=== PATIENT | female | born 1975 | race Caucasian/White ===

== ENCOUNTER 2022-05-06 07:21 | Outpatient (CLI) | payer OTHER, SELFPAY ==
--- NOTE | ~2022-05-06 | MR_ITS ---
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 TECHNIQUE: Magnetic resonance imaging (MRI) of the brain and brainstem was performed without and with 12 mL MultiHance intravenous contrast. COMPARISON: None. FINDINGS: Left hippocampus is small with increased T2-weighted signal intensity. There is no intracra nial hemorrhage, acute infarction, or abnormal intracranial mass lesion. There is an old infarct in l eft parietal lobe. The ventricles are normal in size. There is mild mucosal thickening in the paranas al sinuses. The orbits are normal. The mastoid air cells are normal. IMPRESSION: 1. 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 2. Left-sided mesial temporal sclerosis. Reviewed, dictated and finalized at location A. ING ANALYST
== END 2022-05-06 07:22 | disposition home or self-care (01) ==
LOC: ANHIMG 07:26
PROVIDERS: Visit Provider Internal Medicine
DX: G40.209 Localization-related (focal) (partial) symptomatic epilepsy and epileptic syndromes with complex partial seizures, not intractable, without status epilepticus (principal)
CPT/HCPCS: 70553; A9577

== ENCOUNTER 2022-05-24 07:05 | Outpatient (CLI) | payer OTHER, SELFPAY ==
[2022-05-24 08:24] LABS: Hemoglobin A1C 5.1 % (<5.7)
[2022-05-24 08:32] LABS: Cholesterol 221 mg/dL (0-200); Triglycerides 49 mg/dL (<150)
[2022-05-24 08:38] LABS: LDL Cholesterol Direct 72 mg/dL
[2022-05-24 09:17] LABS: Vitamin D 25 Hydroxy 45.3 ng/mL
[2022-05-24 10:11] LABS: HDL Direct 118 mg/dL
[2022-05-27 18:33] LABS: APC Ratio 5.3 ratio (>=2.1)
[2022-05-27 20:48] LABS: Antithrombin III Activity 131 % normal (80-135)
[2022-05-28 11:02] LABS: Factor VIII Activity 64 % normal (50-180)
[2022-05-28 12:42] LABS: Protein S Antigen, Free 92 % normal (50-147); Protein S Antigen, Total 90 % normal (70-140)
[2022-05-29 05:22] LABS: Carbamazepine Tegretol 9.7 mcg/mL (4.0-12.0)
[2022-05-29 19:16] LABS: Lupus dRVVT Screen 36 sec (<=45); PTT-LA Screen 34 sec (<=40)
== END 2022-05-24 07:06 | disposition home or self-care (01) ==
PROVIDERS: Visit Provider Internal Medicine
DX: I63.9 Cerebral infarction, unspecified (principal); G40.209 Localization-related (focal) (partial) symptomatic epilepsy and epileptic syndromes with complex partial seizures, not intractable, without status epilepticus
CPT/HCPCS: 36415; 80061; 80156; 82306; 83036; 85240; 85300; 85303; 85305; 85306; 85307; 85613; 85730; 86146; 86147

== ENCOUNTER 2022-05-25 08:29 | Outpatient (CLI) | payer OTHER, SELFPAY ==
--- NOTE | 2022-05-25 | ECHO_ITS ---
Patient Info Name: Eleanor Wilson Age: 46 years : 1975 Gender: Female Ht: 66 in Wt: 144 lbs BSA: 1.75 m2 HR: 76 bpm BP: 148 / 73 mmHg Technical Quality: Good Exam Date: 05/25/2022 1:49 PM Exam Location: [facility] Patient Status: Outpatient Admit Date: 05/25/2022 Staff Ordering Physician: Delaney, José Miguel Boss MD Weapons Officer [employer]: Amanda Pierson RDCS Attending Provider: Delaney, José Miguel Boss MD Referring Physician: Delaney ALAB; Exam Type: CA echo doppler color flow Study Info Indications I63.9 - CVA Complete two-dimensional, color flow and Doppler transthoracic echocardiogram is performed. Summary 1. Complete two-dimensional, color flow and Doppler transthoracic echocardiogram is performed. 2. Left ventricular chamber dimension is normal. 3. Left ventricular systolic function is normal, estimated at 60-65%. 4. The left ventricular diastolic function is normal. 5. E/e' 8 is minimally elevated. 6. Global longitudinal strain is normal at -18.2%. 7. Left atrial chamber dimension is mildly enlarged. 8. No pulmonary hypertension, estimated pulmonary arterial systolic pressure is 30 mmHg. Left Ventricle E/e' 8 is minimally elevated. Global longitudinal strain is normal at -18.2%. Left ventricular chamber dimension is normal. Left ventricular systolic function is normal, estimated at 60-65%. The left ventricular diastolic function is normal. Right Ventricle Right ventricular chamber dimension is normal. Right ventricular systolic function is normal. Left Atria Left atrial chamber dimension is mildly enlarged. Right Atria Right atrial chamber dimension is normal. Aortic Valve The aortic valve is trileaflet. There is no aortic valve stenosis. There is no aortic valve regurgitation. Pulmonic Valve There is mild pulmonic regurgitation. Mitral Valve There is no mitral valve stenosis. There is no mitral valve regurgitation. Tricuspid Valve There is no tricuspid valve regurgitation. No pulmonary hypertension, estimated pulmonary arterial systolic pressure is 30 mmHg. Pericardium/Pleural There is no pericardial effusion. Inferior Vena Cava Normal inferior vena cava with >50% collapse upon inspiration consistent with normal right atrial pressure, 5 mmHg. Aorta The aortic root size at the sinus of Valsalva is normal. Left Ventricular Outflow Tract Name Value Normal LVOT 2D LVOT Diameter 1.9 cm LVOT Doppler LVOT Peak Gradient 3 mmHg LVOT Mean Gradient 2 mmHg LVOT VTI 20 cm LVOT VTI/AV VTI Ratio 0.9 LVOT Stroke Volume 56 ml LVOT CO 4.1 l/min LVOT CI 2.4 l/min/m2 Pulmonic Valve Name Value Normal RVOT Doppler
--- NOTE | ~2022-05-25 | US_ITS ---
EXAMINATION: US carotid duplex BI DATE: 05/25/2022 17:17 INDICATION: Cerebrovascular accident TECHNIQUE: Grayscale, color Doppler, and pulsed Doppler images of the cervical carotid arteries were obtained. The degree of vessel stenosis is placed in one of the following categories: normal, <50%, 5 0-69%, >=70% but less than near-occlusion, near-occlusion, or total occlusion. Note that percent sten osis relative to normal distal artery lumen diameter is indirectly measured from velocity measurement s as described by Torsten, et al. Radiology 2003; 229:340-346. COMPARISON: None. FINDINGS: RIGHT: The right common carotid artery (CCA) peak systolic velocity (PSV) is 96 cm/s. The right internal car otid artery (ICA) PSV is 99 cm/s. The right ICA end-diastolic velocity (EDV) is 23 cm/s. The right IC A/CCA PSV ratio is 1.0. Grayscale and color Doppler images yield an estimate of <50% diameter reducti on from plaque in the ICA. The external carotid artery (ECA) PSV is 130 cm/s. There is antegrade flow in the right vertebral artery. LEFT: The left CCA PSV is 111 cm/s. The left ICA PSV is 126 cm/s. The left ICA EDV is 50 cm/s. The left ICA /CCA PSV ratio is 1.1. Grayscale and color Doppler images including secondary Doppler criteria yield an estimate of <50% diameter reduction from plaque in the ICA. The ECA PSV is 108 cm/s. There is ante grade flow in the left vertebral artery. IMPRESSION: 1. <50% stenosis in the right internal carotid artery. 2. <50% stenosis in the left internal carotid artery. Reviewed, dictated and finalized at location A. TRICAL WORKER
== END 2022-05-25 08:30 | disposition home or self-care (01) ==
LOC: ANHCARD 08:32
PROVIDERS: Visit Provider Internal Medicine
DX: I63.9 Cerebral infarction, unspecified (principal); I65.23 Occlusion and stenosis of bilateral carotid arteries
CPT/HCPCS: 93306; 93880

== ENCOUNTER 2022-06-06 15:03 | Outpatient (CLI) | payer OTHER, SELFPAY ==
--- NOTE | 2022-06-09 12:23 | WPDHOLTEREM ---
Holter/Event Monitor Holter/Event Monitor Date of procedure: 06/06/22 Holter/Event Procedure: 48 Hr Holter Monitor Indications: CVA Conclusion: 1. 48 hour holter monitor on 06/06/22. 2. Underlying rhythm is sinus rhythm. HR range 63-136 bpm; average HR 89 bpm. 3. No premature supraventricular complexes. No supraventricular tachycardia. 4. There is 1 premature ventricular complex. No ventricular tachycardia. 5. No sinoatrial or atrioventricular blocks. No significant pauses greater than 2 seconds. 6. Patient reports symptoms of irregular beat and pounding heart beats which demonstrate sinus rhythm, HR range 82-113 bpm.
== END 2022-06-06 15:04 | disposition home or self-care (01) ==
PROVIDERS: Visit Provider Internal Medicine
DX: I63.9 Cerebral infarction, unspecified (principal)
CPT/HCPCS: 93225; 93226

== ENCOUNTER 2022-12-19 16:42 | Outpatient (CLI) | payer OTHER, SELFPAY ==
--- NOTE | ~2022-12-19 | XR_ITS ---
EXAMINATION: [id number] DATE: 12/19/2022 17:02 INDICATION: Right foot pain. TECHNIQUE: 3 views of right foot including standing views were obtained. COMPARISON: None. FINDINGS: Bone alignment is normal. No fracture. Joint spaces are normal. IMPRESSION: 1. Normal right foot. Reviewed, dictated and finalized at location A. IMPRESSION: 1. Normal right foot.
== END 2022-12-19 16:43 | disposition home or self-care (01) ==
PROVIDERS: PCP Internal Medicine; Visit Provider Clinical Nurse Specialist
DX: M79.671 Pain in right foot (principal)
CPT/HCPCS: 73630

== ENCOUNTER 2023-02-21 06:34 | Outpatient (CLI) | payer OTHER, SELFPAY ==
[2023-02-21 07:22] LABS: Basophils Absolute Auto 0.1 K/mm3 (0.0-0.1); Basophils Percent Auto 1.4 % (0.2-1.2); Eosinophils Absolute Auto 0.1 K/mm3 (0-0.3); Eosinophils Percent Auto 1.9 % (0-4.4); Hematocrit 37.4 % (37.0-47.0); Hemoglobin 12.4 g/dL (12.0-15.0); Immature Granulocyte Absolute 0.01 K/mm3 (0.00-0.031); Immature Granulocyte Percent A 0.2 % (0-0.5); Lymphocytes Absolute Auto 1.48 K/mm3 (0.9-3.2); Lymphocytes Percent Auto 34.3 % (18.3-44.2); Mean Corpuscular HGB Conc 33.2 g/dl (32-36); Mean Corpuscular Hemoglobin 31.3 pg (26-34); Mean Corpuscular Volume 94.4 fl (80-100); Mean Platelet Volume 9.7 fl (7.4-10.4); Monocytes Absolute Auto 0.3 K/mm3 (0.1-0.6); Monocytes Percent Auto 7.9 % (2.6-8.5); Neutrophils Absolute Auto 2.4 K/mm3 (1.3-6.7); Neutrophils Percent Auto 54.3 % (45.5-73.1); Platelet Count Result 303 k/mm3 (150-375); Red Blood Count 3.96 M/mm3 (4.2-5.4); Red Cell Distribution Width 11.8 % (11.5-14.5); White Blood Count 4.3 K/mm3 (4.5-10.0)
[2023-02-21 07:32] LABS: Alanine Aminotransferase 17 U/L (6-35); Albumin Level 4.4 g/dL (3.5-5.1); Alkaline Phosphatase 26 U/L (38-126); Anion Gap 7 mmol/L (8-16); Aspartate Amino Transferase 20 U/L (14-36); Bilirubin,Total 0.5 mg/dL (0.2-1.3); Blood Urea Nitrogen 14 mg/dL (7-17); Calcium 8.7 mg/dL (8.4-10.2); Carbon Dioxide 24 mmol/L (22-30); Chloride 99 mmol/L (98-107); Estimated Glomerular Filt Rate > 60; Glucose 92 mg/dL (65-110); Potassium 3.8 mmol/L (3.4-5.0); Sodium 130 mmol/L (137-145)
[2023-02-21 07:33] LABS: Hemoglobin A1C 5.2 % (<5.7)
[2023-02-24 08:22] LABS: Carbamazepine Tegretol 11.2 mcg/mL (4.0-12.0)
== END 2023-02-21 06:35 | disposition home or self-care (01) ==
PROVIDERS: PCP Internal Medicine; Visit Provider Clinical Nurse Specialist
DX: G40.209 Localization-related (focal) (partial) symptomatic epilepsy and epileptic syndromes with complex partial seizures, not intractable, without status epilepticus (principal); I10 Essential (primary) hypertension; Z13.228 Encounter for screening for other metabolic disorders
CPT/HCPCS: 36415; 80053; 80156; 80157; 83036; 84443; 85025; 99212; G0463

== ENCOUNTER 2023-02-23 06:31 | Outpatient (CLI) | payer OTHER, SELFPAY ==
[2023-02-23 07:03] LABS: Anion Gap 8 mmol/L (8-16); Blood Urea Nitrogen 13 mg/dL (7-17); Calcium 8.7 mg/dL (8.4-10.2); Carbon Dioxide 25 mmol/L (22-30); Chloride 100 mmol/L (98-107); Estimated Glomerular Filt Rate > 60; Glucose 93 mg/dL (65-110); Potassium 4.4 mmol/L (3.4-5.0); Sodium 133 mmol/L (137-145)
== END 2023-02-23 06:32 | disposition home or self-care (01) ==
LOC: ANHLAB 06:33
PROVIDERS: PCP Internal Medicine; Visit Provider Clinical Nurse Specialist
DX: E87.1 Hypo-osmolality and hyponatremia (principal)
CPT/HCPCS: 36415; 80048; 99212; G0463

== ENCOUNTER 2023-12-24 15:19 | Outpatient (CLI) | payer OTHER, SELFPAY ==
--- NOTE | 2023-12-24 | ECHO_ITS ---
Patient Info Name: Eleanor Wilson Age: 48 years : 1975 Gender: Female Ht: 67 in Wt: 150 lbs BSA: 1.80 m2 HR: 65 bpm BP: 146 / 72 mmHg Technical Quality: Fair Exam Date: 12/24/2023 3:40 PM Exam Location: Echo Lab Patient Status: Outpatient Admit Date: 12/24/2023 Staff Ordering Physician: Pat, Dax Gilmore MD Courtesy Driver: Virginia Grey RDCS Attending Provider: Pat, Dax Gilmore MD Referring Physician: Pat CANALES; Exam Type: CA echo doppler color flow Study Info Indications R06.00 - Dyspnea, unspecified Complete two-dimensional, color flow and Doppler transthoracic echocardiogram is performed. Summary 1. Complete two-dimensional, color flow and Doppler transthoracic echocardiogram is performed. 2. Left ventricular chamber dimension is normal. 3. Left ventricular systolic function is normal, estimated at 60-65%. 4. The left ventricular diastolic function is normal. 5. E/e' 8 is minimally elevated. 6. There is trace aortic valve regurgitation. 7. There is trace mitral valve regurgitation. 8. There is trace tricuspid valve regurgitation. 9. RVSP is not calculated due to an inadequate TR jet. Left Ventricle E/e' 8 is minimally elevated. Left ventricular chamber dimension is normal. Left ventricular systolic function is normal, estimated at 60-65%. The left ventricular diastolic function is normal. Right Ventricle Right ventricular systolic function is normal and with normal TAPSE 2.9 cm. Right ventricular chamber dimension is normal. Left Atria Left atrial chamber dimension is normal. Right Atria Right atrial chamber dimension is normal. Aortic Valve The aortic valve is trileaflet. There is no aortic valve stenosis. There is trace aortic valve regurgitation. Pulmonic Valve There is no pulmonic regurgitation. Mitral Valve There is no mitral valve stenosis. There is trace mitral valve regurgitation. Tricuspid Valve There is trace tricuspid valve regurgitation. RVSP is not calculated due to an inadequate TR jet. Pericardium/Pleural There is no pericardial effusion. Inferior Vena Cava Normal inferior vena cava with >50% collapse upon inspiration consistent with normal right atrial pressure, 5 mmHg. Aorta The aortic root size at the sinus of Valsalva is normal. Left Ventricular Outflow Tract Name Value Normal LVOT 2D LVOT Diameter 2.0 cm LVOT Doppler LVOT Peak Gradient 3 mmHg LVOT Mean Gradient 1 mmHg LVOT VTI 20 cm LVOT VTI/AV VTI Ratio 0.8 LVOT Stroke Volume 66 ml LVOT CO 4.1 l/min LVOT CI 2.3 l/min/m2 Pulmonic Valve Name Value Normal PV Doppler PV Peak Gradient 3 mmHg PV Regurgitation Doppler
== END 2023-12-24 15:20 | disposition home or self-care (01) ==
PROVIDERS: PCP Internal Medicine
DX: R06.09 Other forms of dyspnea (principal)
CPT/HCPCS: 93306

== ENCOUNTER 2024-01-25 09:33 | Outpatient (CLI) | payer OTHER, SELFPAY ==
--- NOTE | 2024-01-25 | EST_ITS ---
Patient Info Name: Eleanor Wilson Age: 48 years : 1975 Gender: Female Ht: 67 in Wt: 150 lbs BSA: 1.80 m2 HR: 72 bpm BP: 150 / 102 mmHg Heart Rhythm: Sinus Rhythm Exam Date: 01/25/2024 10:29 AM Exam Location: Echo Lab Patient Status: Outpatient Admit Date: 01/25/2024 Staff Ordering Physician: TAYE, DANIELLE Attending Provider: TAYE, DANIELLE Exercise Technologist: Lucia Nuñez CT Exercise Physician: Indra Pastrana DO Exam Type: CA stress test treadmill w NM Study Info Indications R06.02 - Shortness of breath A nuclear stress test was performed. Summary 1. 1. Negative Miguel exercise stress test for ischemic ST changes by ECG criteria. 2. 2. Reduced functional capacity, achieving 7 METs of workload. 3. 3. Baseline hypertension. 4. 4. Appropriate HR response to exercise. 5. 5. Appropriate HR recovery at 1 minute post exercise. 6. 6. Nuclear scan to follow and will be reported separately. Please correlate with it. 7. 7. Patient informed of the above results. Protocol: Miguel Stress ECG Details Stage: REST Duration (min): 2 min : 10 sec Speed (mph): 0.0 Grade (%): 0 HR (bpm): 73 SBP (mmHg): 150 DBP (mmHg): 104 METS: --- Stage: REST Duration (min): 7 min : 14 sec Speed (mph): 0.0 Grade (%): 0 HR (bpm): 82 SBP (mmHg): 150 DBP (mmHg): 104 METS: --- Stage: STAGE 1 Duration (min): 1 min : 0 sec Speed (mph): 1.7 Grade (%): 10 HR (bpm): 99 SBP (mmHg): 150 DBP (mmHg): 104 METS: --- Stage: STAGE 1 Duration (min): 2 min : 0 sec Speed (mph): 1.7 Grade (%): 10 HR (bpm): 120 SBP (mmHg): 150 DBP (mmHg): 104 METS: --- Stage: STAGE 1 Duration (min): 3 min : 0 sec Speed (mph): 1.7 Grade (%): 10 HR (bpm): 131 SBP (mmHg): 190 DBP (mmHg): 82 METS: --- Stage: STAGE 2 Duration (min): 1 min : 0 sec Speed (mph): 2.5 Grade (%): 12 HR (bpm): 142 SBP (mmHg): 190 DBP (mmHg): 82 METS: --- Stage: STAGE 2 Duration (min): 2 min : 0 sec Speed (mph): 2.5 Grade (%): 12 HR (bpm): 150 SBP (mmHg): 193 DBP (mmHg): 75 METS: --- Stage: STAGE 2 Duration (min): 3 min : 0 sec Speed (mph): 2.5 Grade (%): 12 HR (bpm): 156 SBP (mmHg): 193 DBP (mmHg): 75 METS: --- Stage: STAGE 3 Duration (min): 0 min : 2 sec Speed (mph): 3.4 Grade (%): 14 HR (bpm): 156 SBP (mmHg): 193 DBP (mmHg): 75 METS: --- Stage: RECOVERY Duration (min): 0 min : 57 sec Speed (mph): 0.0 Grade (%): 0 HR (bpm): 132 SBP (mmHg): 187 DBP (mmHg): 48 METS: --- Stage: RECOVERY Duration (min): 1 min : 57 sec Speed (mph): 0.0 Grade (%): 0 HR (bpm): 107 SBP (mmHg): 187 DBP (mmHg): 48 METS: --- Stage: RECOVERY Duration (min): 2 min : 57 sec Speed (mph): 0.0 Grade (%): 0 HR (bpm): 106 SBP (mmHg): 181 DBP (mmHg): 61 METS: --- Stage: RECOVERY Duration (min): 3 min : 13 sec Speed (mph): 0.0 Grade (%): 0 HR (bpm): 99 SBP (mmHg): 181 DBP (mmHg): 61 METS: --- Rest HR: 82 bpm Peak HR: 157 bpm Rest Sys BP: 150 mmHg Peak Sys BP: 193 mmHg Max Pred HR: 172 bpm % Max Pred HR: 91 % Target HR: 146 bpm Max RPP: 30,301 bpm*mmHg Banda Score: -3 Termination Reason: Reached target heart rate or workload Cardiac Symptoms: Shortness of breath Max ST Seg Deviation: 2 mm Total Time: 6 min : 2 sec Rest Guo BP: 104 mmHg Peak Guo BP: 75 mmHg Angina Score: None Total METS: 7.1 Resting ECG Sinus rhythm. Stress ECG No ST changes. Arrhythmias None. Report Signatures
--- NOTE | ~2024-01-25 | NM_ITS ---
EXAMINATION: NM stress w perf spect multi DATE: 01/25/2024 11:35 INDICATION: Shortness of breath. TECHNIQUE: Rest images were obtained following intravenous administration of 9.8 mCi Tc99m tetrofosmi n ([employer]). The patient performed an exercise activity. At peak exercise, 31.2 mCi Tc99m tetrofosmin ([employer]) was administered intravenously, and stress images were obtained. Data was reconstructed in to short axis and horizontal and vertical long axis SPECT images. Gated SPECT images were also obtain ed. COMPARISON: None. FINDINGS: There is no definite reversible or fixed perfusion abnormality to suggest ischemia or infar ction. There is no segmental wall motion abnormality. Left ventricular ejection fraction measures > 70%. IMPRESSION: 1. No definite ischemia or infarct. 2. Normal left ventricular ejection fraction measuring >70%. Reviewed, dictated and finalized at location A.
== END 2024-01-25 09:34 | disposition home or self-care (01) ==
PROVIDERS: PCP Internal Medicine
DX: R06.02 Shortness of breath (principal)
CPT/HCPCS: 78452; 93017; A9502

== ENCOUNTER 2024-08-13 15:35 | Outpatient (CLI) | payer OTHER, SELFPAY ==
--- NOTE | ~2024-08-13 | MM_ITS ---
EXAMINATION: MM screening marjorie BI w alfie HISTORY: Screening TECHNIQUE: Craniocaudal and mediolateral oblique 3-D tomosynthesis images were obtained and synthetic 2-D images were generated. CAD analysis was submitted and interpreted. COMPARISON: No prior mammogram is available for comparison at this institution. BREAST PARENCHYMAL COMPOSITION: Dense: The breasts are extremely dense, which lowers the sensitivity of mammography. FINDINGS: There is a circumscribed mass in the upper outer quadrant of the right breast, posterior th ird, partially obscured by fibroglandular tissue. There are scattered benign-appearing breast calcifi cations. There are no suspicious masses or architectural distortion in the left breast. IMPRESSION: 1. Right breast mass upper outer quadrant, posterior third. 2. Additional mammographic views and possible breast ultrasound are recommended. BI-RADS Category 0: Incomplete: Needs additional imaging evaluation. Reviewed, dictated and finalized at location A. IMPRESSION: 1. Right breast mass upper outer quadrant, posterior third. 2. Additional mammographic views and possible breast ultrasound are recommended . BI-RADS Category 0: Incomplete: Needs additional imaging evaluation.
--- OUTSIDE RECORDS SUMMARY | 2024-08-13 16:23 | XMS_ITS | Encounter Summary ---
Author Organization [facility] Address [address] [place] [address] Care Team Providers Care Metallurgical Lab Technician Name Role Phone Blanquita Eubanks WATERFRONT DIRECTOR Primary Care Provider [phone] Encounter Details Date Type Department Care Team (Late Contact Info) Description 03/26/2024 MyChart Message Enc [facility] - [address], [address] [place] [phone] Kenyatta Sow MD [address] [place] [id number] Carbamazaphine Social History Tobacco Use Types Packs/Day Years Used Date Smoking Tobacco: Never Passive Smoke Exposure: Never Smokeless Tobacco: Never Alcohol Use Standard Drinks/Week Comments Yes 1 (1 standard drink = 0.6 oz pure alcohol) a little rum with soda or water/ 3 weekly Comments Unknown Sex and Gender Information Value Date Recorded Sex Assigned at Not on file Legal Sex Female 12:54 PM CDT Gender Identity Not on file Sexual Orientation Not on file documented as of this encounter Plan of Treatment Upcoming Encounters Date Type Department Care Team (Late Contact Info) Description 03/30/2025 7:20 AM STEP DOWN SPECIALIST Office Visit [facility] - [address], [address] [place] [phone] Kenyatta Sow MD [address] [place] [address] documented as of this encounter Visit Diagnoses Not on filedocumented in this encounter Care Teams Metallurgical Lab Technician Relationship Specialty Start Date End Date Blanquita Eubanks FNP [address] [facility] [address] [place] [address] PCP - General CLINICAL NURSE SPECIALIST 09/24/23 documented as of this encounter
--- OUTSIDE RECORDS SUMMARY | 2024-08-13 16:23 | XMS_ITS | Encounter Summary ---
Author Organization [facility] Address [address] [place] [address] Care Team Providers Care Vp Sales Name Role Phone None, Provider Primary Care Provider Blanquita Quezada Primary Care Provider [phone] Encounter Details Date Type Department Care Team (Late st Contact Info) Description 02/22/2023 Tiscali UKt Message Enc [address], [address] [place] [phone] Noni Elder, CHIP [address] [place] [phone] Lab testing Social History Tobacco Use Types Packs/Day Years Used Date Smoking Tobacco: Never Passive Smoke Exposure: Never Smokeless Tobacco: Never Alcohol Use Standard Drinks/Week Comments Yes 3.3 (1 standard drink = 0.6 oz p ure alcohol) Comments Unknown Sex and Gender Information Value Date Recorded Sex Assigned at Not on file Legal Sex Female 12:54 PM CDT Gender Identity Not on file Sexual Orientation Not on file documented as of this encounter Plan of Treatment Upcoming Encounters Date Type Department Care Team (Late st Contact Info) Description 03/30/2025 7:20 AM BRASS WIND INSTRUMENTS TUBE BENDER Office Visit [address], [address] [place] [phone] Kenyatta Sow MD [address] [place] [address] documented as of this encounter Visit Diagnoses Not on filedocumented in this encounter Care Teams Vp Sales Relationship Specialty Start Date End Date None, Provider, PCP - General 11/04/21 09/23/23 Blanquita Eubanks, PBX MECHANIC [address] [place] [address] [address] [place] [address] PCP - General CLINICAL NURSE SPECIALIST 09/24/23 documented as of this encounter
--- OUTSIDE RECORDS SUMMARY | 2024-08-13 16:23 | XMS_ITS | Data Portability ---
Author Organization [facility] Address [address] [place] [address] Care Team Providers Care Station Installation Supervisor Name Role Phone LINDSAYNARESHGIOVANNYMARTY Primary Care Provider Assessment Encounter Date Assessment Date Assessment LastModified by Organization Details LastModified Time 08/23/2023 08/23/2023 Annual gynecological exam performed. Patient will come back in a year unless there are new symptoms. jostin Not available 08/23/2023 10:57:23 Plan of Treatment Reminders Order Date Submit Date Provider Last Modified By Organization Details Last Modified Time Details Appointments WELL WOMAN-EST 2024 03:30P M GALE Calderon Not available Not available Not available Lab None recorded. Referral None recorded. Procedures None recorded. Surgeries None recorded. Imaging MAMMO, screening , digital, bilateral 2023 024 [facility], [address] [place] [address] [address], [place], [address], 03/02/2024 05:00:53 Medication Orders None recorded. Patient TargetsNo targets recorded. Patient InstructionsNo instructions recorded. Reason for Referral None Reported. Results Created Date Observation Date Name Description Value Unit Range Abnormal Flag Note LastModifiedBy Organization Detail LastModifiedTime 08/23/19 24 08/23/2023 IMAGE GUIDE D PAP AND HPV REGAR DLESS image guided Pap, HPV regardless of Pap result SEE RESULT S BELOW CASE REPOR T: Cytol ogy Gynec ologi tom Repor t Case: [id number] Autho chato g Provi tl: Tasneem Calloway NP Colle cted: 08/22 1136 Order ing Locat ion: [place] Patho logroslyn Recei ruperto: 08/23 0302 First Scree n: Jane stanley, Cuong nichole, CT Rescr een: Grecia Solomon ret, CT Speci men: Arti ulloa Pap - Image d, Cervi x STATE MENT OF ADEQU ACY: Satis facto ry for evalu ation Trans forma tion zone compo nent absen t The absen ce of an endoc ervic al compo nent was confi rmed by an addit ional scree ner. ----- ----- ----- ----- ----- ----- ----- ----- ----- ----- ----- ----- ----- ----- ----- ----- ----- ---- FINAL DIAGN OSIS: Negat wanda for Intra epith elial Jeradl butts or Niraj akbar (NIL) . Elect malinibeatriz king ankur d by Grecia Solomon ret, CT on 2023 at 5:53 PM ----- ----- ----- ----- ----- ----- ----- ----- ----- ----- ----- ----- ----- ----- ----- ----- ----- ---- HPV RESUL TS: HPV mRNA E6/E7 : No HPV mRNA Detec martina NOTE: This high risk HPV mRNA assay detec ts fourt een high- risk HPV types (16, 18, 31, 33, 35, 39, 45, 51, 52, 56, 58, 59, 66, 68) witho ut diffe renti ation . COMME NT: This speci men was revie wed by a Cytot echno logis t and/o r Patho logis t (as indic ated in this repor t) after evalu ation using the Thinp rep Imagi ng Syste m. CLINI TOM INFOR MATIO N: Menst rual Statu s: LMP (if appli cable ): Clini tom Histo ry/Pr eviou s Pap: Type of Neopl leonid (if appli cable ): Signi fican t Clini tom Findi ngs: Other Histo ry: Hormo adriana (if appli cable ): PAP EDUCA CONCEPCION L NOTE: The Pap Test is a scree artemio test with an inher ent false negat wanda rate. Liqui d-bas ed sampl ing may decre ase, but will not elimi vidal, false negat wanda resul ts. A negat wanda resul t does not precl ude the prese nce and/o r devel opmen t of disea se, since the prese nce of abnor mal cells in the sampl e depen ds on the locat ion of the lesio n and sampl ing techn ique. Maria Isabel nued regul ar scree artemio is the best metho d of cance r preve ntion . If repor martina cytol ogic findi ng do not corre late with physi tom and/o r histo rical findi ngs, furth er inves tigat ion is recom castro d, as clini jennifer warra nted. Not Available [facility] (Lab) [address], [place], [address], 08/29/2023 18:56:07 Result Notes None recorded. Procedures Surgical History Date Name Laterality Status Provider Name and Address Organization Details Recorded Time Tonsillectomy completed Bridget Herrera [facility] 08/23/2023 10:59:26 loop electrosurgical excision procedure completed GALE Calderon [address], [place], [address], , P.C. 08/23/2023 11:23:05 Imaging Results None recorded. Procedure Notes None recorded. Medical Equipment None Reported. Allergies No known drug allergies Medications Name Sig Start Date Stop Date Status Note LastModified by Organization Details LastModified Time losartan 50 mg tablet TAKE 1 TABLET BY MOUTH DAILY active Not Available Not Available No t Available losartan 25 mg tablet TAKE 1 TABLET BY MOUTH EVERY DAY 08/22 completed Not Available Not Available Not Available lisinopril 5 mg tablet TAKE 1 TABLET BY MOUTH EVERY DAY 08/22 completed Not Available Not Available Not Available Adult Aspirin 81 mg tablet active Not Available Not Available No t Available carbamazepi ne ER 200 mg capsule,ext ended release [id number] TAKE 2 CAPSULES TWICE DAILY active Not Available Not Available No t Available carbamazepi ne 08/22 completed Not Available Not Available Not Available Vitals Date Recorded Body weight Body mass index (BMI) Body height Systolic blood pressure Diastolic blood pressure Systolic blood pressure Diastolic blood pressure Provider Name and Address Organization Details Last Updated DateTime 4 97409.0 4 g 23.8 kg/m2 170.18 cm 150 mm[Hg] 78 mm[Hg] 146 mm[Hg] 82 mm[Hg] Bridget Herrera [facility] 11:25:59 Social History Question Answer Notes LastModified by Organizat ion Details LastModified Time Tobacco Smoking Status Never Smoker Bridgetgee Herrera [facility] 08/23/2023 11:01:37 What Is Your Level Of Alcohol Consumption? Moderate Information not available 08/23/2023 How Many Years Have You Consumed Alcohol? 20 Information not available 08/23/2023 Are You Blind Or Do You Have Difficulty Seeing? No Information not available 08/23/2023 What Is Your Level Of Caffeine Consumption? Moderate Information not available 08/23/2023 In The 14 Days Before Symptom Onset, Have You Had Close Contact With A Laboratory-confir med COVID-19 While That Case Was Ill? No Information not available 08/23/2023 In The 14 Days Before Symptom Onset, Have You Had Close Contact With A Person Who Is Under Investigation For COVID-19 While That Person Was Ill? No Information not available 08/23/2023 Have You Been To An Area Known To Be High Risk For COVID-19? No Information not available 08/23/2023 Are You Deaf Or Do You Have Serious Difficulty Hearing? No Information not available 08/23/2023 What Type Of Diet Are You Following? CARBOHYDRATE Information not available 08/23/2023 What Is The Highest Grade Or Level Of School You Have Completed Or The Highest Degree You Have Received? 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 Yes Information not available 08/23/2023 Do You Use Protection During Sex? No Information not available 08/23/2023 Do You Use Your Seat Belt Or Car Seat Routinely? Yes Information not available 08/23/2023 Do You Have Smoke And Carbon Monoxide Detectors In Your Home? Yes Information not available 08/23/2023 How Much Tobacco Do You Smoke? No Information not available 08/23/2023 Do You Feel Stressed (tense, Restless, Nervous, Or Anxious, Or Unable To Sleep At Night)? [id number] Information not available 08/23/2023 Do You Use Any Illicit Or Recreational Drugs? No Information not available 08/23/2023 Do You Use Sunscreen Routinely? No Information not available 08/23/2023 Have You Used IV Drugs? No Information not available 08/23/2023 Sex: Unknown Functional Status Question Answer Note LastModified by Organization D etails LastModified Time Are you able to walk? YESWOREST Information not available 08/23/2023 What is your exercise level? Moderate Information not available 08/23/2023 Mental Status None recorded. Family History Relationship Description Onset Age of this Age Resolved Age Notes LastModified by Organization Details LastModified Time Paternal Aunt Malignant tumor of breast Not available 2023 10:58:56 Sister Malignant tumor of breast Not available 2023 10:58:56 Medical History Condition Response Arthritis Y Stroke Y Hypertension Y Neurologic/Epilepsy Y High Cholesterol Y Gynecological History Statement/Question Response Date of Last Mammogram Date of LMP 08/12/2023 N Was last menstrual period normal Y STIs/STDs N Date of Last Colonoscopy None Desired Control Method None Abnormal Pap N On BCP's at Conception? N HPV Vaccine N Colposcopy Duration of Flow (days) 5 Current Control Method None Age at First Child 29 Are cycles usually normal Y Frequency of Cycle (Q days) 5 Sexually Active? N Menses Monthly Y Date of DEXA bone scan Age of first menstrual cycle 15 Date of Last Pap Smear Sexual Problems? N LMP Definite N Obstetrics History GPAL:G 1 P 0 0 0 1 Type Value Living 1 Total 1 Past Encounters Encounter ID Performer Location Encounter Start Date Encounter Closed Date Diagnosis/Indication Diagnosis SNOMED-CT Code Diagnosis ICD10 Code Diagnosis Note [id number] GALE Calderon [place] [address] [address] 08/23/2023 10:53:53 08/23/2023 11:31:13 Gynecologic examination 18849615 Z01.419 WWEBC - declinedpa p updatedmam mogram order given - encouraged to schedulege netic testing discussed - handout givencolon CA screening discussed/ encouraged Routine labs UTD/PCPBP precaution s reviewed, f/u with PCPRTC in 1 yr or sooner if needed Suggested Calcium with Vitamin D daily. Patient advised to get an annual flu shot in the fall and she could obtain at [facility] or [facility]. Also to obtain TDap vaccinatio n if you have not had one in the last 10 years. Recommend yearly mammograms . Encouraged monthly self breast exams. Encourage safe sexual practices, to use condoms and limit partners if not already in a monogamous relationsh ip. Engage in regular exercise. Avoid tobacco and illicit drugs. This lifestyle behavior pattern will lead to less health conditions and longer life span. If BMI greater than 25 dietary consult advised. All questions have been answered. Patient appears to understand informatio n, but if you have any questions please call or respond to this email. Screening for malignant neoplasm of breast 871650097 Z12.39 Family his tory of neoplasm of breast 146009827 Z84.89 Health Concerns Section Related Observation LastModified by Organization Richie almaraz LastModified Time None Recorded Concern Status LastModified by Organization Details LastModified Time None Recorded Advance Directives Directive None Recorded Payers Encounter Date Sequence Insurance Name Policy Number Policy Estrada Covered Member ID Estrada Member ID Guarantor Name 08/23/2023 1 [facility] [id number] Eleanor Wilson [id number] Eleanor Wilson Notes Date Note Type Note Provider Name and Address Organization Details Recorded Time 08/23/2023 text/html Annual GYNReport ed bypatient.Menstrual cycle:Normal menses Urinary symptoms:No hematuria; No incontinence Vulva:No genital lesion Vagina:Normal vaginal discharge Breast:No breast pain; No breast lump; No nipple discharge Current Contraception:Satisf ied with current contraception; withdrawal Sexual complaints:No sexual complaints; No pain during intercourse; Normal libido Menopausal Symptoms:No menopausal symptoms; Normal vaginal lubrication Psychological symptoms:No depression; No anxiety; No PMDD Preventive measures:Encourage self breast examination; Encourage regular exercise; Encourage no tobacco use; Encourage regular mammograms starting age 40; Needs to schedule mammogram; Needs to schedule colonoscopyNotes:47y o [id number] - withdrawalhx LEEP 5-7 yrs ago per ptnormal paps sincelast pap 08/2022 : normalmammogram last 2-3 yrs agoh/o of sister with BC at age 47, unsure if she had genetic testing.paternal aunt with BCno colon CA screening yetUTD with PCP medical hx: epilepsy, stroke, HTN, Arthritis, High Cholesterol GALE Calderon [address], [place], [address], [facility] 08/23/2023 11:29:29 OBGyn Episode Ob Episode Information Episode Created Date Number of Fetuses Patient Bloodtype Patient rh Status Prepregnancy Weight lbs Domestic Partner Domestic Partner Phone Father Name Lock Plater Status 08/23/19 24 1 CLOSED Fetus Data First Name Last Name Admitted to NICU Weight (g) Sex Living Outcome Pediatric Complications Fetus ID Race Codes Race Delivery Type F Full Term [id number] Vaginal Delivery Cheo Calculation Initial Cheo Date Initial Exam Date Initial Exam Provider Initial Ultrasound Date Last Menstrual Period Date Ultra Sound Weeks Gestation 0 Eighteen To Twenty Week Cheo Update Ultra Sound Date Fundal Height At Umbil Quickening Date Ultra Sound Latest Weeks Gestation Final Cheo Confirmed By Final Cheo Confirmed Date Final Cheo Date Ultra Sound Latest Days Gestation 0 0 Menstrual History Last Menstrual Date Menses Monthly On Bcp Conception Prior Menses Frequency Hcg Plus Date Menarche Onset Age Delivery Information Delivery Date Delivery Type Labor Anesthesia Weeks Gestation Incision Type Labor Labor Length Hrs Delivered By Post Complications Tubal Sterilization Discharge Date Comments 6 Discharge Information Feeding Method Contraceptive Method Maternal HG B and HCT Levels
--- OUTSIDE RECORDS SUMMARY | 2024-08-13 16:23 | XMS_ITS | Clinical Summary ---
Author Organization [facility] Address [address] [place] [address] Care Team Providers Care Animal Control Specialist Name Role Phone Raimundo Blanquita Clotilde HOSE TUBING BACKER Primary Care Provider [phone] Allergies No known active allergies Medications losartan (COZAAR) 50 MG tablet Take 1 tablet (50 mg total) by mouth daily. 03/25/2023 Active Vitamin D3 (VITAMIN D) 50 mcg tablet Take 1 tablet (50 mcg total) by mouth daily. 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 360 capsule 3 03/31/2024 03/31/20 25 Active Active Problems Problem Noted Date Diagnosed Date Murmur Immunizations Immunization Administration Dates Next Due Influenza (Generic) 03/27/2016 Family History Medical History Relation Comments Cancer Father Early Hearing Loss Father Cancer Maternal Grandfather Arthritis Mother Cancer Paternal Aunt COPD Paternal Grandfather Cancer Paternal Grandfather Cancer Paternal Grandmother Cancer Sister 1 Miscarriages / Stillbirths Sister 1 Stroke Sister 1 Arthritis Sister 2 Miscarriages / Stillbirths Sister 2 Relation Status Comments Father Alive Maternal Grandfather Mother Alive Paternal Aunt Paternal Grandfather Paternal Grandmother Sister 1 Alive Sister 2 Social History Tobacco Use Types Packs/Day Years [...] on file Sexual Orientation Not on file Last Filed Vital Signs Vital Sign Reading Time Taken Comments Blood Pressure 148/81 03/31/2024 8:09 AM SILK OPENER Pulse 77 03/31/2024 8:09 AM SILK OPENER Temperature 36.5 C (97.7 F) 03/30/2023 8:57 AM SILK OPENER Respiratory Rate 16 03/30/2023 8:57 AM SILK OPENER Oxygen Saturation 99% 03/31/2024 8:09 AM SILK OPENER Inhaled Oxygen Concentration - - Weight 68 kg (150 lb) 03/31/2024 8:09 AM SILK OPENER Height 168.9 cm (5' 6.5 ) 03/31/2024 8:09 AM SILK OPENER Body Mass Index 23.85 03/31/2024 8:09 AM SILK OPENER Plan of Treatment Upcoming Encounters Date Type Department Care Team (Late st Contact Info) Description 03/30/2025 7:20 AM SILK OPENER Office Visit [facility] Multispecialty Care - [address], [address] [place] [address] Kenyatta Sow MD [address] [place] [address] Health Maintenance Due Date Last Done Comments Colorectal Cancer Screening Colonoscopy (10 Years) 1975 Annual Physical 12/22/1978 Hepatitis C 12/22/1993 DTaP, Tdap and Td Vaccines ( 1 - Tdap) 12/22/1994 Hepatitis B Vaccines (1 of 3 - 19+ 3-dose series) 12/22/1994 Cervical Cancer Screening Pa p with HPV Testing (Age 30 to 64) Every 5 Years 12/22/2005 Mammogram Screening 2015 COVID-19 Vaccine (2023-2 5 season) 2023 04/21/2021, 11/18/2020, 10/28/2020 PHQ-2 (Physician [place]) 04/16/2024 Cervical Cancer Screening Pa p Smear (Age 30 to 64) Every 3 Years 08/22/2026 08/23/2023 Cervical Cancer Screening wi th HPV 08/22/2026 Meningococcal B Vaccine Aged Out No l onger eligible based on patient's age to complete this topic Meningococcal Vaccine Aged Out No sanjay devante eligible based on patient's age to complete this topic Pneumococcal Vaccine: Pediatrics (0 to 5 Years) and At-Risk Patients (6 to 49 Years) Aged Out No longer eligible b ased on patient's age to complete this topic RSV Immunizations Under 20 Months Aged Out No longer eligible b ased on patient's age to complete this topic Insurance [facility] Care Teams Animal Control Specialist Relationship Specialty Start Date End Date Blanquita Eubanks FNP [facility][NOTE 3] [facility] [address] [place] [address] PCP - General CLINICAL NURSE SPECIALIST 09/24/23
--- OUTSIDE RECORDS SUMMARY | 2024-08-13 16:23 | XMS_ITS | Encounter Summary ---
Author Organization [facility] Address [address] [place] [address] Care Team Providers Care Venue Manager Name Role Phone Blanquita Eubanks COLOR DRUM WORKER Primary Care Provider [phone] Encounter Details Date Type Department Care Team (Late Contact Info) Description 02/04/2024 Abstract [facility], [place] [address] [place] [address] Lakeshia Mcguire MA Social History Tobacco Use Types Packs/Day Years [...] (Late Contact Info) Description 03/30/2025 7:20 AM BUILDING ENERGY CONSULTANT Office Visit [facility] Multispecialty Care - [facility] [address], [address] [place] [address] Kenyatta Sow MD [address] [place] [address] documented as of this encounter Procedures Procedure Name Priority Date/Time Associated Diagnosis Comments COMPREHENSIVE METABOLIC PANEL Routine 02/23/2023 CBC, MANUAL DIFF Routine 02/23/2023 documented in this encounter Results * (ABNORMAL) COMPREHENSIVE METABOLIC PANEL (02/23/2023) SODIUM S/P/B 133 GLUCOSE 93 mg/dL AST 20 BUN 13 CREATININE S/P/B 0.10(A) 0.5 - 1.0 CALCIUM S/P/B 8.7 POTASSIUM S/P/B 4.4 CHLORIDE S/P/B 100 ALT 17 GFR ESTIMATE 0.60 us Default History Genericprovider LABORATORY Final Result * CBC, MANUAL DIFF (02/23/2023) WBC 4.3 HGB 12.4 HCT 37.4 PLT 303 us Default History Genericprovider LABORATORY Final Result documented in this encounter Visit Diagnoses Not on filedocumented in this encounter Care Teams Venue Manager Relationship Specialty Start Date End Date Blanquita Eubanks FNP [address] [facility] [address] [place] [address] PCP - General CLINICAL NURSE SPECIALIST 09/24/23 documented as of this encounter
== END 2024-08-13 15:36 | disposition home or self-care (01) ==
LOC: ANHIMG 15:37
PROVIDERS: PCP Internal Medicine; Visit Provider Clinical Nurse Specialist
DX: Z12.31 Encounter for screening mammogram for malignant neoplasm of breast (principal); R92.8 Other abnormal and inconclusive findings on diagnostic imaging of breast
CPT/HCPCS: 77063; 77067

== ENCOUNTER 2024-08-27 10:27 | Outpatient (CLI) | payer OTHER, SELFPAY ==
--- NOTE | ~2024-08-27 | MMUS_ITS ---
EXAMINATION: MM diagnostic marjorie RT w alfie, US breast RT limited HISTORY: Follow-up right breast mass TECHNIQUE: Additional 3-D tomosynthesis images of the right breast were performed and synthetic 2-D i mages were generated. CAD analysis was submitted and interpreted. High resolution Limited right breas t ultrasound was performed. COMPARISON: Comparison to multiple prior studies sequentially, with oldest reviewed study dated 11/07. BREAST PARENCHYMAL COMPOSITION: Dense: The breasts are extremely dense, which lowers the sensitivity of mammography. FINDINGS: MAMMOGRAPHIC FINDINGS: There are small ill-defined obscured masses in the upper outer quadrant of the right breast. There ar e no suspicious calcifications or architectural distortion. ULTRASOUND: Limited right breast ultrasound: Multiple right breast cysts, largest at 8:00, 2 cm from the nipple m easuring 1.2 cm. And at 9:00, 5 cm from the nipple measuring 1.4 cm. No suspicious masses to suggest malignancy. IMPRESSION: 1. No evidence for malignancy in the right breast. Benign findings. 2. Routine yearly screening mammogram and regular clinical breast examination are recommended. BI-RADS Category 2: Benign finding(s). Reviewed, dictated and finalized at location A. IMPRESSION: 1. No evidence for malignancy in the right breast. Benign findings. 2. Routine yearly screening mammogram and regular clinical breast examination a re recommended. BI-RADS Category 2: Benign finding(s).
--- OUTSIDE RECORDS SUMMARY | 2024-08-27 10:48 | XMS_ITS | Encounter Summary ---
Author Organization [facility] Address [address] [place] [address] Care Team Providers Care Marketing Program Coordinator Name Role Phone Blanquita Eubanks MATERIALS AND CORROSION ENGINEER Primary Care Provider [phone] Encounter Details Date Type Department Care Team (Late Contact Info) Description 03/26/2024 MyChart Message Enc [facility] - [address], [address] [place] [phone] Kenyatta Sow MD [address] [place] [address] Carbamazaphine Social History Tobacco Use Types [...] (Late Contact Info) Description 03/30/2025 7:20 AM MANAGER WHOLESALE Office Visit [address], [address] [place] [address] Kenyatta Sow MD [address] [place] [address] documented as of this encounter Visit Diagnoses Not on filedocumented in this encounter Care Teams Marketing Program Coordinator Relationship Specialty Start Date End Date Blanquita Eubanks FNP [address] [facility] [address] [place] [address] PCP - General CLINICAL NURSE SPECIALIST 09/24/23 documented as of this encounter
--- OUTSIDE RECORDS SUMMARY | 2024-08-27 10:48 | XMS_ITS | Clinical Summary ---
Author Organization [facility] Address [address] [place] [address] Care Team Providers Care Dog Catcher Name Role Phone Raimundo Blanquita Clotilde IN HOUSE CRA Primary Care Provider [phone] Allergies No known active allergies Medications losartan [...] Comments Blood Pressure 148/81 03/31/2024 8:09 AM BANBURY MILL OPERATOR Pulse 77 03/31/2024 8:09 AM BANBURY MILL OPERATOR Temperature 36.5 C (97.7 F) 03/30/2023 8:57 AM BANBURY MILL OPERATOR Respiratory Rate 16 03/30/2023 8:57 AM BANBURY MILL OPERATOR Oxygen Saturation 99% 03/31/2024 8:09 AM BANBURY MILL OPERATOR Inhaled Oxygen Concentration - - Weight 68 kg (150 lb) 03/31/2024 8:09 AM BANBURY MILL OPERATOR Height 168.9 cm (5' 6.5 ) 03/31/2024 8:09 AM BANBURY MILL OPERATOR Body Mass Index 23.85 03/31/2024 8:09 AM BANBURY MILL OPERATOR Plan of Treatment Upcoming Encounters Date Type Department Care Team (Late st Contact Info) Description 03/30/2025 7:20 AM BANBURY MILL OPERATOR Office Visit [facility] Multispecialty Care - [address], [address] [place] [address] Kenyatta Sow MD [address] [place] [address] Health Maintenance Due Date Last Done Comments [...] season) 2023 04/21/2021, 11/18/2020, 10/28/2020 PHQ-2 (Physician [place]) 04/16/2024 Cervical Cancer Screening Pa p Smear [...] patient's age to complete this topic Insurance [facility] Care Teams Dog Catcher Relationship Specialty Start Date End Date Blanquita Eubanks FNP [facility] [address] [place] [address] PCP - General CLINICAL NURSE SPECIALIST 09/24/23
--- OUTSIDE RECORDS SUMMARY | 2024-08-27 10:48 | XMS_ITS | Data Portability ---
Author Organization [facility] Address [address] [place] [address] Care Team Providers Care Fish Hatchery Man Name Role Phone LINDSAYNARESH MARTY Primary Care Provider Assessment Encounter Date Assessment Date Assessment LastModified by Organization Details LastModified Time 08/23/2023 08/23/2023 Annual gynecological exam performed. Patient will come back in a year unless there are new symptoms. [email or web address] Not available 08/23/2023 10:57:23 Plan of Treatment Reminders Order Date Submit Date Provider Last Modified By Organization Details Last Modified Time Details Appointments [facility] 2024 10:45A M GALE Calderon Not available Not available Not available Lab None recorded. Referral None recorded. Procedures None recorded. Surgeries None recorded. Imaging MAMMO, screening , digital, bilateral 2023 024 [facility], [address] [place] [address] [address], [place], [address], 03/02/2024 05:00:53 Medication Orders None recorded. Patient [...] OSIS: Negat wanda for Intra epith elial Jerald butts or Niraj akbar (NIL) . Elect [...] adriana (if appli cable ): PAP EDUCA CONCEPCOIN L NOTE: The Pap Test is a [...] ique. Maria Isabel nued regul ar scree aretmio is the best metho d of cance r preve ntion . If repor martina cytol ogic findi ng do not corre late with physi tom and/o r histo rical findi ngs, furth er inves tigat ion is recom castro d, as clini jennifer warra nted. Not Available [facility] (Lab) [address], [place], [address], 08/29/2023 18:56:07 Result Notes None recorded. Procedures Surgical History Date Name Laterality Status Provider Name and Address Organization Details Recorded Time Tonsillectomy completed Bridget Herrera [facility] 08/23/2023 10:59:26 loop electrosurgical excision procedure completed GALE Calderon [address], [place], [address], [facility] 08/23/2023 11:23:05 Imaging Results None recorded. Procedure Notes None recorded. Medical Equipment None Reported. Allergies No known drug allergies Medications Name Sig Start Date Stop Date Status Note LastModified by Organization Details LastModified Time losartan 50 mg tablet TAKE 1 TABLET BY MOUTH EVERY DAY active Not Available Not Available No t [...] ne ER 200 mg capsule,ext ended release [id number] TAKE 2 CAPSULES BY MOUTH TWICE A DAY active Not Available Not Available No t Available carbamazepi ne 08/22 completed Not Available Not Available Not Available Vitals Date Recorded Body weight Body mass index (BMI) Body height Systolic blood pressure Diastolic blood pressure Systolic blood pressure Diastolic blood pressure Provider Name and Address Organization Details Last Updated DateTime 4 66769.0 4 g 23.8 kg/m2 170.18 cm 150 mm[Hg] 78 mm[Hg] 146 mm[Hg] 82 mm[Hg] Bridget Herrera [facility] 11:25:59 Social History Question Answer Notes LastModified by Organizat ion Details LastModified Time Tobacco Smoking Status Never Smoker Bridget Herrera [facility] 08/23/2023 11:01:37 How Many Years Have You Consumed Alcohol? 20 Information not available 08/23/2023 Are You Blind Or Do You Have Difficulty Seeing? No Information n ot available 08/23/2023 What Is Your Level Of Caffeine Consumption? Moderate Information not available 08/23/2023 In The 14 Days Before Symptom Onset, Have You Had Close Contact With A Laboratory-confirm ed COVID-19 While That Case Was Ill? No Information n ot available 08/23/2023 In The 14 Days Before [...] Of Diet Are You Following? CARBOHYDRATE Information n ot available 08/23/2023 What Is The Highest Grade Or Level Of School You Have Completed Or The Highest Degree You Have Received? EX98353-0 Information not available 08/23/2023 Are There Any [...] Functional Status Question Answer Note LastModified by Organizat ion Details LastModified Time Do you use any illicit or recreational drugs? No Information not available 08/23/2023 What is your level of alcohol consumption? Moderate Information not available 08/23/2023 Are you able to walk? 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 Moderate Information not available 08/23/2023 Mental Status Question Answer Note LastModified by Organization D etails LastModified Time Do you feel stressed (tense, restless, nervous, or anxious, or unable to sleep at night)? [id number] Information not available 08/23/2023 Family History Relationship Description Onset Age of [...] SNOMED-CT Code Diagnosis ICD10 Code Diagnosis Note [id number] GALE Calderon [place] [address] [address] 08/23/2023 10:53:53 08/23/2023 11:31:13 Gynecologic examination 91661122 Z01.419 WWEBC - declinedpa p updatedmam mogram order given - encouraged to schedulege netic testing discussed - handout givencolon CA screening discussed/ encouraged Routine labs UTD/PCPBP precaution s reviewed, f/u with [facility] in 1 yr or sooner if needed Suggested Calcium with Vitamin D daily. Patient advised to get an annual flu shot in the fall and she could obtain at [facility] or [facility] clinic. Also to obtain TDap vaccinatio n if [...] email. Screening for malignant neoplasm of breast 884840139 Z12.39 Family his tory of neoplasm of breast 590347893 Z84.89 Health Concerns Section Related Observation LastModified by Organization Detai ls LastModified Time None Recorded Concern Status LastModified by Organization Details LastModified Time None Recorded Advance Directives Directive None Recorded Payers Encounter Date Sequence Insurance Name Policy Number Policy Estrada Covered Member ID Estrada Member ID Guarantor Name 08/23/2023 1 [facility] [id number] Eleanor Wilson [id number] Eleanor Steve Notes Date Note Type Note Provider Name [...] schedule mammogram; Needs to schedule colonoscopyNotes:47y o [id number] - withdrawalhx LEEP 5-7 yrs ago per ptnormal paps sincelast pap 08/2022 : normalmammogram last 2-3 yrs agoh/o of sister with BC at age 47, unsure if she had genetic testing.paternal aunt with BCno colon CA screening yetUTD with PCP medical hx: epilepsy, stroke, HTN, Arthritis, High Cholesterol GALE Calderon [address], [place], [address], [facility] 08/23/2023 11:29:29 OBGyn Episode Ob Episode Information Episode Created Date Number of Fetuses Patient Bloodtype Patient rh Status Prepregnancy Weight lbs Domestic Partner Domestic Partner Phone Father Name Bag Sealer Status 08/23/19 24 1 CLOSED Fetus Data First Name Last Name Admitted to NICU Weight (g) Sex Living Outcome Pediatric Complications Fetus ID Race Codes Race Delivery Type F Full Term [id number] Vaginal Delivery Cheo Calculation Initial Cheo Date [...]
--- OUTSIDE RECORDS SUMMARY | 2024-08-27 10:48 | XMS_ITS | Encounter Summary ---
Author Organization [facility] Address [address] [place] [address] Care Team Providers Care Biosolids Management Technician Name Role Phone Blanquita Eubanks PIPING DESIGN SPECIALIST Primary Care Provider [phone] Encounter Details Date Type Department Care Team (Late Contact Info) Description 02/04/2024 Abstract [facility] [place] [address] Lakeshia Mcguire MA Social History Tobacco Use [...] (Late Contact Info) Description 03/30/2025 7:20 AM BODILY INJURY ADJUSTER Office Visit [facility] - [facility] [address] [facility], [address] [place] [address] Kenyatta Sow MD [address] [place] [address] documented as of this encounter Procedures Procedure [...] on filedocumented in this encounter Care Teams Biosolids Management Technician Relationship Specialty Start Date End Date Blanquita Eubanks FNP [address] [facility] [address] [place] [address] PCP - General CLINICAL NURSE SPECIALIST 09/24/23 documented as of this encounter
--- OUTSIDE RECORDS SUMMARY | 2024-08-27 10:48 | XMS_ITS | Encounter Summary ---
Author Organization [facility] Address [address] [place] [address] Care Team Providers Care Glass Mold Repairer Name Role Phone None, Provider Primary Care Provider Blanquita Quezada Primary Care Provider [phone] Encounter Details Date Type Department Care Team (Late st Contact Info) Description 02/22/2023 Zero Gravity Solutionst Message Enc [address], [address] [place] [address] Noni Elder, CHIP [address] [place] [address] Lab testing Social History Tobacco [...] st Contact Info) Description 03/30/2025 7:20 AM CERTIFIED NOVELL ADMINISTRATOR Office Visit [address], [address] [place] [address] Kenyatta Sow MD 3 [place] [address] documented as of this encounter Visit Diagnoses Not on filedocumented in this encounter Care Teams Glass Mold Repairer Relationship Specialty Start Date End Date None, Provider, PCP - General 11/04/21 09/23/23 Blanquita Eubanks, PERINATAL INSTRUCTOR [address] [place] [address] [address] [place] [address] PCP - General CLINICAL NURSE SPECIALIST 09/24/23 documented as of this encounter
== END 2024-08-27 10:28 | disposition home or self-care (01) ==
LOC: ANHIMG 10:29
PROVIDERS: PCP Internal Medicine; Visit Provider Clinical Nurse Specialist
DX: R92.8 Other abnormal and inconclusive findings on diagnostic imaging of breast (principal)
CPT/HCPCS: 76642; 77061; 77065; G0279

== ENCOUNTER 2024-11-06 14:40 | Outpatient (CLI) | payer OTHER, SELFPAY ==
--- NOTE | ~2024-11-06 | DEXA_ITS ---
Bone Density Report Name: DELFINO SHANKAR Age: 48 Sex: Female Ethnicity: White Date of : 1975 Indication: postmenopausal; height loss; seizure disorder; Referring Provider: MARTY SANTOS Study: Bone densitometry was performed. Exam Date: November 06, 2024 Accession number: [id number] Bone Density: Region BMD T-score Z-score Classification AP Spine(L1-L4) 1.031 -0.1 0.5 Normal Femoral Neck (Left) 0.711 -1.2 -0.6 Osteopenia Total Hip (Left) 0.897 -0.4 0.1 Normal Femoral Neck (Right) 0.719 -1.2 -0.5 Osteopenia Total Hip (Right) 0.901 -0.3 0.1 Normal Total Hip Mean 0.899 -0.4 0.1 Normal World Health Organization criteria for BMD impression classify patients as: Normal (T-score at or above -1.0), Osteopenia (T-score between -1.0 and -2.5), or Osteoporosis (T-score at or below -2.5). 10-year Fracture Risk(1): Major Osteoporotic Fracture 3.9% Hip Fracture 0.2% Reported Risk Factors: [place] (), Neck BMD=0.711, BMI=24.9 (1) FRAX(R) Version 3.08. Fracture probability calculated for an untreated patient. Fracture probability may be lower if the patient has received treatment. Clinical Information Provided by Patient: Has used the following medications: Vitamin D Has the following medical conditions: Any Seizure Disorders Patient maximum height was 67 No regular weight bearing exercise Onset of menses at age 13 Number of children 1 Impression: The patient has low bone mass, based on the Left Femoral Neck T-score. The patient has an estimated ten-year risk of hip fracture of 0.2% and an estimated ten-year risk of major fracture of 3.9%, based on the WHO FRAX algorithm. Discussion: BONE DENSITY IS LOW AT ONE OR MORE SKELETAL SITES. This patient's lowest T-score is low at one or more skeletal sites. It meets the World Health Organization's (WHO) criteria for ?low bone mass? (T-score between -1.0 and -2.5). The patient's 10-year risk of fracture as calculated by FRAX is less than the threshold where pharmacological therapy is recommended by the National Osteoporosis Foundation (NOF). However, all treatment decisions require clinical judgment and consideration of individual patient factors, including patient preferences, comorbidities, previous drug use, risk factors not captured in the FRAX model (e.g., frailty, falls, vitamin D deficiency, increased bone turnover, interval significant decline in bone density) and possible under or overestimation of fracture risk by FRAX. The patient should follow a healthful lifestyle (good nutrition with adequate calcium and vitamin D, and appropriate weight-bearing exercise). Follow-Up: Consider repeating this study in 2 to 3 years to reassess this patient's status, or sooner if there is some new clinical indication. Reported by: DANICA on 11/06/2024 3:43:00 PM. Reviewed, dictated and finalized at location A.
--- OUTSIDE RECORDS SUMMARY | 2024-11-06 14:47 | XMS_ITS | Clinical Summary ---
Author Organization [facility] Address [address] [place] [address] Care Team Providers Care Hematology Oncology Consultant Name Role Phone ChineduBlanquita farah Clotilde INSPECTOR SOLDERING Primary Care Provider [phone] Allergies No known active allergies Medications losartan [...] Problems Problem Noted Date Diagnosed Date Murmur Encounters Date Type Department Care Team Description 10/16/2024 MyChart Message Enc [facility] Multispecialty Care - [facility] [address] [facility] [address], [address] [place] [address] Kenyatta Sow MD Pinion Sorter Services Department Form from Last 3 Months Immunizations Immunization Administration Dates Next Due Influenza [...] Comments Blood Pressure 148/81 03/31/2024 8:09 AM WHITE SUGAR SYRUP OPERATOR Pulse 77 03/31/2024 8:09 AM WHITE SUGAR SYRUP OPERATOR Temperature 36.5 C (97.7 F) 03/30/2023 8:57 AM WHITE SUGAR SYRUP OPERATOR Respiratory Rate 16 03/30/2023 8:57 AM WHITE SUGAR SYRUP OPERATOR Oxygen Saturation 99% 03/31/2024 8:09 AM WHITE SUGAR SYRUP OPERATOR Inhaled Oxygen Concentration - - Weight 68 kg (150 lb) 03/31/2024 8:09 AM WHITE SUGAR SYRUP OPERATOR Height 168.9 cm (5' 6.5) 03/31/2024 8:09 AM WHITE SUGAR SYRUP OPERATOR Body Mass Index 23.85 03/31/2024 8:09 AM WHITE SUGAR SYRUP OPERATOR Plan of Treatment Upcoming Encounters Date Type Department Care Team (Late st Contact Info) Description 03/30/2025 7:20 AM WHITE SUGAR SYRUP OPERATOR Office Visit [facility] Multispecialty Care - [address], [address] [place] [address] Kenyatta Sow MD 3 [place] [address] Health Maintenance Due Date Last Done Comments Colorectal Cancer Screening Colonoscopy (10 Years) 1975 Annual Physical 12/22/1978 Hepatitis C 12/22/1993 DTaP, Tdap and Td Vaccines ( 1 - Tdap) 12/22/1994 Hepatitis B Vaccines (1 of 3 - 19+ 3-dose series) 12/22/1994 Cervical Cancer Screening Pa andriy with HPV Testing (Age 30 to 64) Every 5 Years 12/22/2005 Mammogram Screening 2015 COVID-19 Vaccine (4 - 4-2 5 season) 2023 04/21/2021, 11/18/2020, 10/28/2020 PHQ-2 (Physician [place]) 04/16/2024 Cervical Cancer Screening Pa p Smear [...] patient's age to complete this topic Insurance Care Teams Hematology Oncology Consultant Relationship Specialty Start Date End Date Blanquita Eubanks FNP [address] [facility] [address] [place] [address] PCP - General CLINICAL NURSE SPECIALIST 09/24/23
--- OUTSIDE RECORDS SUMMARY | 2024-11-06 14:47 | XMS_ITS | Encounter Summary ---
Author Organization [facility] Address [address] [place] [address] Care Team Providers Care Slasher Sawyer Name Role Phone None, Provider Primary Care Provider Blanquita Quezada Primary Care Provider [phone] Encounter Details Date Type Department Care Team (Late st Contact Info) Description 02/22/2023 Ecrebot Message Enc [address], [address] [place] [address] Noni Elder, CHIP [address] [place] [address] Lab testing Social History Tobacco [...] st Contact Info) Description 03/30/2025 7:20 AM LOTTERY OFFICE MANAGER Office Visit [address], [address] [place] [address] Kenyatta Sow MD [address] [place] [address] documented as of this encounter Visit Diagnoses Not on filedocumented in this encounter Care Teams Slasher Sawyer Relationship Specialty Start Date End Date None, Provider, PCP - General 11/04/21 09/23/23 Blanquita Eubanks, CONE TRUCKER [address] [place] [address] [address] [place] [address] PCP - General CLINICAL NURSE SPECIALIST 09/24/23 documented as of this encounter
--- OUTSIDE RECORDS SUMMARY | 2024-11-06 14:47 | XMS_ITS | Encounter Summary ---
Author Organization [facility] Address [address] [place] [address] Care Team Providers Care Authorization Coordinator Name Role Phone Blanquita Eubanks ELECTRONIC COMPONENTS ASSEMBLER Primary Care Provider [phone] Encounter Details Date Type Department Care Team (Late Contact Info) Description 02/04/2024 Abstract [facility], [address] [place] [address] Lakeshia Mcguire MA Social History Tobacco Use [...] Contact Info) Description 03/30/2025 7:20 AM MANAGER OF ENVIRONMENTAL SERVICES Office Visit [facility]ty Care - [facility] [address] [facility], [address] [place] [address] Kenyatta Sow MD 3 [place] [address] documented as of this encounter Procedures Procedure [...] on filedocumented in this encounter Care Teams Authorization Coordinator Relationship Specialty Start Date End Date Blanquita Eubanks FNP [address] [facility] [address] [place] [address] PCP - General CLINICAL NURSE SPECIALIST 09/24/23 documented as of this encounter
--- OUTSIDE RECORDS SUMMARY | 2024-11-06 14:47 | XMS_ITS | Data Portability ---
Author Organization [facility] Address [address] [place] [address] Care Team Providers Care Slag Motor Operator Name Role Phone MARTY SANTOS Primary Care Provider Assessment Encounter Date Assessment Date Assessment LastModified by Organization Details LastModified Time 08/23/2023 08/23/2023 Annual gynecological exam performed. Patient will come back in a year unless there are new symptoms. [email or web address] Not available 08/23/2023 10:57:23 09/09/2024 09/09/2024 Annual gynecological exam performed. Patient will come back in a year unless there are new symptoms. [email or web address] Not available 09/09/2024 12:01:15 Plan of Treatment Reminders Order Date Submit Date Provider Last Modified By Organization Details Last Modified Time Details Appointments None recorded. Lab pap, IG + HR HPV - HPV regardless but if HPV is positive need subtyping 16,18/45 2024 025 [facility] (Lab), [address], [place], [address], 5 20:16:50 Referral gastroenter ologist referral 2024 025 [facility], [place], operated by [facility], [address], [address], [place], [address], 5 04:03:59 Procedures None recorded. Surgeries None recorded. Imaging MAMMO, screening, digital, bilateral 2023 024 [facility], [address], [place], [address], 4 05:00:53 Medication Orders None recorded. Patient TargetsNo targets recorded. Patient InstructionsNo instructions recorded. Reason for Referral Educational Guidance Counselor Referral for Screening for malignant neoplasm of colon Referring Physician: Tasneem Calloway, BUSINESS SYSTEMS DEVELOPER, Encounter Date: 09/09/2024 Results Created Date Observation Date Name Description [...] 1136 Order ing Locat ion: [place] Patho logy Recei ruperto: 08/23 0302 First Scree n: Cuong Lima ed, CT Rescr een: Grecia Solomon ret, CT Speci men: Scree artemio Pap - Image d, Cervi x STATE [...] butts or Niraj akbar (NIL) . Elect jennifer king ankur d by Grecia Solomon ret, [...] is recom castro d, as clini jennifer lea nted. Not Available [facility] (Lab) [address], [place], [address], 08/29/2023 18:56:07 09/10/19 25 09/09/2024 IMAGE GUIDE D PAP AND HPV REGAR DLESS image guided Pap, HPV regardless of Pap result SEE RESULT S BELOW CASE REPOR T: Cytol ogy Gynec ologi tom Repor t Case: [id number] Autho chato campos Provi tl: Tasneem Calloway NP Colle cted: 09/09 1323 Order ing Locat ion: [place] Patho logy Recei ruperto: 09/10 0717 First Scree n: Alayna Márquez, CT Speci men: Arti ulloa Pap - Image d, Cervi x STATE MENT OF ADEQU ACY: Satis facto ry for evalu ation Trans forma tion zone compo nent absen t ----- ----- ----- ----- ----- ----- ----- ----- ----- ----- ----- ----- ----- ----- ----- ----- ----- ---- FINAL DIAGN OSIS: Negat wanda for Intra epith elial Jerald butts or Niraj akbar ([facility]) . Elect jennifer pascual d by Alayna Márquez, CT on 2024 at 1913 CDT ----- ----- ----- ----- ----- ----- ----- [...] is recom castro d, as clini jennifer lea nted. Not Available [facility] (Lab) [address], [place], [address], 09/10/2024 20:16:50 Result Notes None recorded. Procedures Surgical History Date Name Laterality Status Provider Name and Address Organization Details Recorded Time 025 Date of Last Mammogram completed [facility] 09/09/2024 12:02:26 025 completed [facility] 09/09/2024 12:02:26 Tonsillectomy completed Bridget Herrera [facility] 08/23/2023 10:59:26 loop electrosurgical excision procedure completed GALE Calderon [address], [place], [address], [facility] 08/23/2023 11:23:05 Imaging Results None recorded. [...] ne ER 200 mg capsule,ext ended release [id number] TAKE 2 CAPSULES BY MOUTH TWICE A DAY active Not Available Not Available No t Available carbamazepi ne 08/22 completed Not Available Not Available Not Available Vitals Date Recorded Body weight Body mass index (BMI) Body height Systolic And Diastolic Systolic And Diastolic Provider Name and Address Organization Details Last Updated DateTime 08/23/2023 17223.04 g 23.8 kg/m2 170.18 cm 150/78 mm[Hg] 146/82 mm[Hg] Bridget Herrera [facility] 11:25:59 Date Recorded Body height Body mass index (BMI) Body weight Systolic And Diastolic Provider Name and Address Organization Details Last Updated DateTime 09/09/2024 170.18 cm 24.9 kg/m2 53060.47 g 137/83 mm[Hg] Eula Tyler [facility] 09/09/2024 12:02:13 Social History Question Answer Notes LastModified by Organizat ion Details LastModified Time Tobacco Smoking Status Never Smoker Bridget Herrera [facility] 08/23/2023 11:01:37 How Many Years Have You Consumed Alcohol? 20 Information not available 08/23/2023 Are You Blind Or Do You Have Difficulty Seeing? No Information n ot available 08/23/2023 What Is Your Level Of Caffeine Consumption? Occasional [email or web address] Information not available 09/09/2024 How Much Tobacco Do You Chew? None [email or web address] Information not available 09/09/2024 In The 14 Days Before Symptom Onset, [...] What Type Of Diet Are You Following? SPECIFIC [email or web address] Information n ot available 09/09/2024 What Is The Highest Grade Or Level Of School You Have Completed Or The Highest Degree You Have Received? [id number] Information not available 08/23/2023 Are There Any [...] Sunscreen Routinely? No Information not available 08/23/2023 How Many Years Have You Smoked Tobacco? 0 [email or web address] Information not available 09/09/2024 Have You Used IV Drugs? No Information [...] 08/23/2023 What is your exercise level? Moderate [email or web address] Information not available 08/23/2023 Mental Status Question Answer Note LastModified by Organization D etails LastModified Time Do you feel stressed (tense, restless, nervous, or anxious, or unable to sleep at night)? [id number] [facility]3 Information not available 08/23/2023 Family History Relationship [...] History Statement/Question Response Date of Last Mammogram 08/13/2024 Flow Moderate Date of LMP 08/24/2024 N Was last menstrual period normal Y STIs/STDs N 08/13/2024 Date of Last Colonoscopy None Desired Control Method None Abnormal Pap N On BCP's at Conception? N Colposcopy HPV Vaccine N Duration of Flow (days) 6 Current Control Method None Age at First Child 29 Are cycles usually normal Y Frequency of Cycle (Q days) 5 Sexually Active? Y Menses Monthly Y Date of DEXA bone scan Age of first menstrual cycle 15 Date of Last Pap Smear Sexual Problems? N LMP Definite N Obstetrics History GPAL:G 1 P 0 0 0 1 Type Value Living 1 Total 1 Past Encounters Encounter ID Performer Location Encounter Start Date Encounter Closed Date Diagnosis/Indication Diagnosis SNOMED-CT Code Diagnosis ICD10 Code Diagnosis Note [id number] GALE Calderon [facility] [address] [address] 08/23/2023 10:53:53 08/23/2023 11:31:13 Gynecologic examination 04102518 Z01.419 WWEBC - declinedpa p updatedmam mogram order given - encouraged to schedulege netic testing discussed - handout givencolon CA screening discussed/ encouraged Routine labs UTD/PCPBP precaution s reviewed, f/u with PCPRTC in 1 yr or sooner if needed Suggested Calcium with Vitamin D daily. Patient advised to get an annual flu shot in the fall and she could obtain at [facility] or [facility] take care clinic. Also to obtain TDap vaccinatio n [...] email. Screening for malignant neoplasm of breast 446995170 Z12.39 Family his tory of neoplasm of breast 502973150 Z84.89 [id number] GALE Calderon [facility] [address] [address] 09/09/2024 11:21:25 09/09/2024 13:34:28 Gynecologic examination 29921892 Z01.419 WWEBC - declinedPa p - done todaySTI screen - declinedMa mmogram - UTD/will request recordsCol on cancer screening - referral for screening colonoscop yRoutine labs - UTD/PCPRTC in 1 yr or sooner if needed Suggested Calcium with Vitamin D daily. Patient advised to get an annual flu shot in the fall and she could obtain at local pharmacy. Also to obtain TDap vaccinatio n if [...] consult advised. All questions have been answered. Screening for malignant neoplasm of colon 209666110 Z12.11 Health Concerns Section Related Observation LastModified by Organization Detai ls LastModified Time None Recorded Concern Status LastModified by Organization Details LastModified Time None Recorded Advance Directives Directive None Recorded Payers Insurance Date Sequence Insurance Name Policy Number Policy Estrada Covered Member ID Estrada Member ID Guarantor Name 09/09/2024 1 [facility] [id number] Eleanor Wilson [id number] Eleanor Wilson Notes Date Note Type Note Provider Name and Address Organization Details Recorded Time 4 text/html Annual GYNReported by PatientGenitourinary symptomsFor menstrual cycle, patient reportsnormal menses. For urinary symptoms, patient reportsno hematuriaandno incontinence. For vulva, patient reportsno genital lesion. For vagina, patient reportsnormal vaginal discharge.Breast symptomsFor breast, patient reportsno breast pain,no breast lump, andno nipple discharge.ContraceptionFo r current contraception, patient reportssatisfied with current contraception(withdrawal) .Endocrine symptomsFor sexual complaints, patient reportsno sexual complaints,no pain during intercourse, andnormal libido. For menopausal symptoms, patient reportsno menopausal symptomsandnormal vaginal lubrication.Psychological symptomsFor psychological symptoms, patient reportsno depression,no anxiety, andno pmdd.Preventative measuresFor preventive measures, patient reportsencourage self breast examination,encourage regular exercise,encourage no tobacco use,encourage regular mammograms starting age 40,needs to schedule mammogram, andneeds to schedule colonoscopy.47yo [id number] - withdrawalhx LEEP 5-7 yrs ago per ptnormal paps sincelast pap 08/2022 : normalmammogram last 2-3 yrs agoh/o of sister with BC at age 47, unsure if she had genetic testing.paternal aunt with BCno colon CA screening yetUTD with PCP medical hx: epilepsy, stroke, HTN, Arthritis, High Cholesterol GALE Calderon [address], [place], [address], [facility] 08/23/2023 11:29:29 5 text/html Annual GYNReported by PatientGenitourinary symptomsFor menstrual cycle, patient reportsnormal menses. For urinary symptoms, patient reportsno hematuriaandno incontinence. For vulva, patient reportsno genital lesion. For vagina, patient reportsnormal vaginal discharge.Breast symptomsFor breast, patient reportsno breast pain,no breast lump, andno nipple discharge.Endocrine symptomsFor sexual complaints, patient reportsno sexual complaints,no pain during intercourse, andnormal libido. For menopausal symptoms, patient reportsno menopausal symptomsandnormal vaginal lubrication.Psychological symptomsFor psychological symptoms, patient reportsno depression,no anxiety, andno pmdd.Preventative measuresFor preventive measures, patient reportsencourage self breast examination,encourage regular exercise,encourage no tobacco use, andencourage regular mammograms starting age 40.47yo [id number] - withdrawalhx LEEP 5-7 yrs ago per ptnormal paps sincelast pap 08/2023 : nilm, HPV (-)mammogram last 07/2024 (had to go back for diagnostic imaging, result wnl per pt - will request records)h/o of sister with BC at age 47, unsure if she had genetic testing.paternal aunt with BCno colon CA screening yetUTD with PCPmedical hx: epilepsy, stroke, HTN, Arthritis, High Cholesterol GALE Calderon [address], [place], [address], [facility] 09/09/2024 13:19:51 OBGyn Episode Ob Episode Information Episode Created Date Number of Fetuses Patient Bloodtype Patient rh Status Prepregnancy Weight lbs Domestic Partner Domestic Partner Phone Father Name Lighting Designer Status 08/23/19 24 1 CLOSED Fetus Data First Name Last Name Admitted to NICU Weight (g) Sex Living Outcome Pediatric Complications Fetus ID Race Codes Race Delivery Type F Full Term [id number] Vaginal Delivery Cheo Calculation Initial Cheo Date [...]
--- OUTSIDE RECORDS SUMMARY | 2024-11-06 14:47 | XMS_ITS | Encounter Summary ---
Author Organization [facility] Address [address] [place] [address] Care Team Providers Care Food Crops Farm Hand Name Role Phone Blanquita Eubanks SALES PROGRAM MANAGER Primary Care Provider [phone] Encounter Details Date Type Department Care Team (Late Contact Info) Description 03/26/2024 MyChart Message Enc [facility] - [address], [address] [place] [phone] Kenyatta Sow MD [address] [place] [address] Carbamazaphine Social History Tobacco Use Types [...] (Late Contact Info) Description 03/30/2025 7:20 AM POLE INCISOR OPERATOR Office Visit [address], [address] [place] [phone] Kenyatta Sow MD [address] [place] [address] documented as of this encounter Visit Diagnoses Not on filedocumented in this encounter Care Teams Food Crops Farm Hand Relationship Specialty Start Date End Date Blanquita Eubanks FNP [address] [facility] [address] [place] [address] PCP - General CLINICAL NURSE SPECIALIST 09/24/23 documented as of this encounter
--- OUTSIDE RECORDS SUMMARY | 2024-11-06 14:47 | XMS_ITS | Encounter Summary ---
Author Organization [facility] Address [address] [place] [address] Care Team Providers Care Treasury Consultant Name Role Phone Blanquita Eubanks CHILD CARE DIRECTOR Primary Care Provider [phone] Encounter Details Date Type Department Care Team (Late st Contact Info) Description 10/16/2024 MyChart Message Enc [facility] - [address], [address] [place] [phone] Kenyatta Sow MD [address] [place] [address] Duct Layer Helper Services Department Form Social History Tobacco Use Types Packs/Day Years [...] st Contact Info) Description 03/30/2025 7:20 AM PACKAGING DESIGN ENGINEER Office Visit [facility] - [address], [address] [place] [phone] Kenyatta Sow MD [address] [place] [address] documented as of this encounter Visit Diagnoses Not on filedocumented in this encounter Care Teams Treasury Consultant Relationship Specialty Start Date End Date Blanquita Eubanks FNP [address] [facility] [address] [place] [address] PCP - General CLINICAL NURSE SPECIALIST 09/24/23 documented as of this encounter
== END 2024-11-06 14:41 | disposition home or self-care (01) ==
LOC: ANHIMG 14:41
PROVIDERS: PCP Internal Medicine; Visit Provider Clinical Nurse Specialist
DX: M85.89 Other specified disorders of bone density and structure, multiple sites (principal); Z79.899 Other long term (current) drug therapy
CPT/HCPCS: 77080

== ENCOUNTER 2025-03-31 10:21 | Outpatient (CLI) | payer OTHER, SELFPAY ==
--- OUTSIDE RECORDS SUMMARY | 2025-03-30 07:20 | XMS_ITS | Encounter Summary ---
Author Organization [facility] Address [address] [place] [address] Care Team Providers Care Career Specialist Name Role Phone Blanquita Eubanks SAP PI DEVELOPER Primary Care Provider [phone] Reason for Referral * Imaging (Routine) - New Request Specialty Diagnoses / Procedures Referred By Contac t Referred To Contact RADIOLOGY Diagnoses Seizure (CMS/HCC [facility]/HCC) Procedures MRI BRAIN WWO CON Kenyatta Cochran MD [address] [place] [address] Phone: tel: fax: Referral ID Status Reason Start Date Expiration Date V isits Requested Visits Authorized [id number] New Request 03/30/2025 03/30/2026 1 1 ORT ENGINEER Reason for Visit * Reason Comments Follow Up Does have a couple o f concerns Encounter Details Date Type Department Care Team (Late st Contact Info) Description 03/30/2025 7:20 AM AIRPORT ENGINEER Office Visit [facility] Multispecialty Care - [facility] [address] [facility], [address] [place] [address] Kenyatta Cochran MD [address] [place] [address] Follow Up (Does have a couple of concerns) Social History Tobacco Use Types Packs/Day Years Used Date Smoking Tobacco: Never Passive Smoke Exposure: Never Smokeless Tobacco: Never Tobacco Cessation:Counseling Given: No Alcohol Use Standard Drinks/Week Comments Yes 1 (1 standard drink = 0.6 oz pure alcohol) a little rum with soda or water/ 3 weekly Comments Unknown Sex and Gender Information Value Date Recorded Sex Assigned at Not on file Legal Sex Female 12:54 PM CDT Gender Identity Not on file Sexual Orientation Not on file documented as of this encounter Last Filed Vital Signs Vital Sign Reading Time Taken Comments Blood Pressure 123/74 03/30/2025 7:20 AM AIRPORT ENGINEER Pulse 81 03/30/2025 7:20 AM AIRPORT ENGINEER Temperature - - Respiratory Rate - - Oxygen Saturation 100% 03/30/2025 7:20 AM AIRPORT ENGINEER Inhaled Oxygen Concentration - - Weight 74.8 kg (165 lb) 03/30/2025 7:20 AM AIRPORT ENGINEER Height 168.9 cm (5' 6.5) 03/30/2025 7:20 AM AIRPORT ENGINEER Body Mass Index 26.23 03/30/2025 7:20 AM AIRPORT ENGINEER documented in this encounter Progress Notes * Kenyatta Cochran MD - 03/30/2025 7:20 AM CST Chief Complaint: Seizure, chronic infarct found on MRI HPI: Plan from last visit: -Continue ASA 81 mg for secondary stroke prevention -Continue carbamazepine ER 400 mg BID for seizure prevention -Labs for CBC and CMP -Discussed reducing stroke risk factors, BP management, lifestyle modification -Follow up in one year Since last visit, past year has been well. In the past month she has noticed her left eye is not opening as much, the last 6 weeks she feels like her left eye jumps. Her eye ball was moving per a coworker. Does it throughout the day. Lasts 5 seconds and then it stops. Happening about every day, afew times a day possibly. Initial history: The patient is a 47 year old female here for a follow up appointment. She was last seen in clinic by Dr. Sanchez on 05/22/22 for temporal lobe epilepsy and an old left parietal lobe infarct found on MRI inDecember 2021. She has been on carbamazepine ER 400 mg BID for more than 25 years. Her last reported seizure was in 1994. She tolerates this medication well and has not had any side effects. Carbamazepine level was therapeutic at 9.7 in May. 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 She had no known history of stroke and did not recall having any symptoms of stroke. She had stroke workup including echocardiogram, carotid dopplers, holter monitor and hyperc oagulability panel. Carotid arteries did not show significant stenosis. LDL was normal. ECHO was normal. Holter monitor did not show any abnormal rhythms. She was started on ASA 81 mg for secondary stroke prevention. She was recently started on losartan for hypertension. She denies any weakness, falls or loss of sensation in her limbs. She says that she gets winded when climbing stairs. This has not changed in the last year. She does not have any heart palpitations or chest pain. Initial history (per note by Dr. Sanchez on 05/22/22 and edited by me) The patient has a history seizures that started at age 2. She had a severe febrile illness at that time. She was hospitalized and had to learn how to walk and talk again. She did not have another seizure occurrence until age 17. She has been on carbamazepine for more than 25 years and was previously seen at [facility]. She has staring spells with inattention during the seizures. She does not have an aura. She says that her last seizure was around 1994. She does not have any history of trauma. Previous Medications: Hypertension: 141/82 Current Outpatient Medications Medication Sig Dispense Refill carBAMazepine ER (CARBATROL) 200 MG 12 hr capsule TAKE 2 CAPSULES BY MOUTH TWICE A DAY 120 capsule 11 losartan (COZAAR) 50 MG tablet Take 1 tablet (50 mg total) by mouth daily. Vitamin D3 (VITAMIN D) 50 mcg tablet Take 1 tablet (50 mcg total) by mouth daily. No current facility-administered medications for this visit. There were no vitals filed for this visit. Past Medical History: Diagnosis Date GERD (gastroesophageal reflux disease) 2004 Hypertension Murmur Osteoporosis Early 1999 after bone density test Seizures ([facility] HHS/HCC) 1978 Stroke ([facility] HHS/[facility]) Unknown Seen on MRI No past surgical history on file. Family History Problem Relation Name Age of Onset Arthritis Mother Opal Cancer Father Thom Early Hearing Loss Father Thom Cancer Sister Eden Stroke Sister Eden Miscarriages / Stillbirths Sister Eden Cancer Maternal Grandfather Mikie Cancer Paternal Grandmother Rachael Cancer Paternal Grandfather Raúl COPD Paternal Grandfather Raúl Cancer Paternal Aunt Nneka Arthritis Sister Maria Isabel Miscarriages / Stillbirths Sister Maria Isabel Social History Tobacco Use Smoking status: Never Passive exposure: Never Smokeless tobacco: Never Vaping Use Vaping status: Never Used Substance Use Topics Alcohol use: Yes Alcohol/week: 1.0 standard drink of alcohol Types: 1 Standard drinks or equivalent per week Comment: a little rum with soda or water/ 3 weekly Drug use: Never REVIEW OF SYSTEMS: Review of Systems HENT: Negative for hearing loss. Eyes: Negative for blurred vision. Musculoskeletal: Negative for back pain, falls and neck pain. Neurological: Negative for dizziness, seizures, weakness and headaches. SEE HPI Psychiatric/Behavioral: The patient does not have insomnia. MENTAL STATUS: Patient was alert, awake and oriented x3, regards and follows commands. Normal language. CRANIAL NERVES: III, IV, : normal extraocular movements V: Normal jaw closure and opening. VII: face was symmetric. VIII: hearing was normal. IX-X: palate elevates at midline. XI: normal symmetric shoulder shrug. Normal 5/5 sternocleidomastoid strength. XII: tongue was midline and strong. No fasciculations. MOTOR: Normal strength 5/5 on MRC scale in the upper and lower extremities. Normal muscle tone. Fine finger movements were normal bilaterally. SENSATION: Intact to touch in all limbs. GAIT: Normal stride and base. REFLEXES: Deferred. Impression and Plan: To summarize, the patient is here for temporal lobe epilepsy and history of stroke. Her seizures have been well controlled on carbamazepine ER 400 mg BID for many years. She has not had a seizure since 1994. She has been on ASA 81 mg for secondary stroke prevention following a chronic left parietalinfarct found on MRI in March 2022. We will check labs and MRI Brain given her new symptoms. We discussed reducing her risk factors for stroke by eating a healthy diet, getting daily exercise,and keeping BP within normal range. Follow up in one year. PLAN: -Continue ASA 81 mg for secondary stroke prevention -Continue carbamazepine ER 400 mg BID for seizure prevention -Labs for CMP and carbamazepine. -MRI Brain WWO -Discussed reducing stroke risk factors, BP management, lifestyle modification -Follow up in one year, will call with results Time spent: 30 total minutes reviewing records, history that was separately obtained, performing the exam, providing education to the patient/caregiver, ordering medicine and documenting in the medical record. KENYATTA COCHRAN MD ORT ENGINEER documented in this encounter Plan of Treatment Upcoming Encounters Date Type Department Care Team (Late st Contact Info) Description 03/31/2026 7:20 AM AIRPORT ENGINEER Office Visit [facility] Multispecialty Care - [facility] [address] [facility], [address] [place] [address] Kenyatta Cochran MD [address] [place] [address] Scheduled Orders Name Type Priority Associated Diagnoses Orde r Schedule MRI BRAIN WWO CON MRI Routine Seizure ([facility]) Expected: 03/30/2025, Expires: 03/30/2026 COMPREHENSIVE METABOLIC PANEL Lab Routine Seizure ([facility]) Expected: 03/30/2025, Expires: 03/30/2026 CARBAMAZEPINE TOTAL Lab Routine Seizure ([facility]) Expected: 03/30/2025, Expires: 03/30/2026 documented as of this encounter Visit Diagnoses Diagnosis Seizure ([facility])- Primary Other convulsions documented in this encounter Care Teams Career Specialist Relationship Specialty Start Date End Date Blanquita Eubanks FNP [facility] [facility] [address] [place] [address] PCP - General CLINICAL NURSE SPECIALIST 09/24/23 documented as of this encounter
--- NOTE | ~2025-03-31 | MR_ITS ---
EXAMINATION: MR brain/brain stem wo/w con DATE: 03/31/2025 12:46 INDICATION: Unspecified convulsions. Seizures. TECHNIQUE: Magnetic resonance imaging (MRI) of the brain and brainstem was performed without and with 15 mL Multihance intravenous contrast. Sequences included sagittal and axial T1-weighted SE, axial diffusion-weighted FS SE, axial 3D SWAN, axial T2-weighted FLAIR Propeller, axial T2-weighted Propeller, coronal T2-weighted FLAIR, and coronal T1-weighted 3D FSPGR. Postcontrast axial T1-weighted SE was obtained. Apparent diffusion coefficient (ADC) maps were created. COMPARISON: None. FINDINGS: There are no areas of restricted diffusion to suggest acute infarction. No intracranial hemorrhage or abnormal intracranial mass lesion. There are no intraparenchymal signal abnormalities seen on the other pulse sequences. Bilateral hippocampi are normal and symmetric. No evans matter heterotopias or ot her neuronal migrational abnormalities. The ventricles are symmetric and normal in size. There are no abnormal extra-axial fluid collections. Flow voids are seen in the cerebral arteries on the T2-weighted sequences consistent with their expected patency. Visualized orbits and soft tissues are unremarkable. There are no areas of abnormal enhancement on the post contrast images. IMPRESSION: 1. Normal brain MR. No acute intracranial process or abnormally enhancing brain lesions. Reviewed, dictated and finalized at location A. HAUL YOUTH SUPERVISOR
--- OUTSIDE RECORDS SUMMARY | 2025-03-31 12:19 | XMS_ITS | Encounter Summary ---
Author Organization [facility] Address [address] [place] [address] Care Team Providers Care Group Art Supervisor Name Role Phone Blanquita Eubanks CREEL SELECTOR Primary Care Provider [phone] Encounter Details Date Type Department Care Team (Late Contact Info) Description 02/04/2024 Abstract [facility] [address] [facility] [place] [address] Lakeshia Mcguire MA Social History Tobacco Use [...] Department Care Team (Late Contact Info) Description 03/31/2026 7:20 AM TITLE ATTORNEY Office Visit [facility] Multispecialty Care - [facility] [address] [facility], [address] [place] [address] Kenyatta Sow MD 3 [place] [address] documented as of this encounter Procedures Procedure [...] on filedocumented in this encounter Care Teams Group Art Supervisor Relationship Specialty Start Date End Date Blanquita Eubanks FNP [address] [facility] [address] [place] [address] PCP - General CLINICAL NURSE SPECIALIST 09/24/23 documented as of this encounter
--- OUTSIDE RECORDS SUMMARY | 2025-03-31 12:19 | XMS_ITS | Encounter Summary ---
Author Organization [facility] Address [address] [place] [address] Care Team Providers Care Manager Of Engineering Name Role Phone Blanquita Eubanks MEDICAL OFFICE ASSISTANT Primary Care Provider [phone] Encounter Details Date Type Department Care Team (Late st Contact Info) Description 10/16/2024 MyChart Message Enc [facility] - [address], [address] [place] [phone] Kenyatta Sow MD [address] [place] [address] Audio Visual Collections Coordinator Services Department Form Social History Tobacco Use [...] st Contact Info) Description 03/31/2026 7:20 AM SEARCH STRATEGIST Office Visit [facility] - [address], [address] [place] [address] Kenyatta Sow MD [address] [place] [address] documented as of this encounter Visit Diagnoses Not on filedocumented in this encounter Care Teams Manager Of Engineering Relationship Specialty Start Date End Date Blanquita Eubanks FNP [address] [facility] [address] [place] [address] PCP - General CLINICAL NURSE SPECIALIST 09/24/23 documented as of this encounter
--- OUTSIDE RECORDS SUMMARY | 2025-03-31 12:20 | XMS_ITS | Encounter Summary ---
Author Organization [facility] Address [address] [place] [address] Care Team Providers Care Weather Observer Name Role Phone None, Provider Primary Care Provider Blanquita Quezada Primary Care Provider [phone] Encounter Details Date Type Department Care Team (Late st Contact Info) Description 02/22/2023 [employer] Vitamin[employer] Message Enc [address], [address] [place] [address] Noni Elder, CHIP [address] [place] [address] Lab testing Social History Tobacco [...] st Contact Info) Description 03/31/2026 7:20 AM RESEARCH AIDE Office Visit [address], [address] [place] [address] Kenyatta Sow MD 3 [place] [address] documented as of this encounter Visit Diagnoses Not on filedocumented in this encounter Care Teams Weather Observer Relationship Specialty Start Date End Date None, Provider, PCP - General 11/04/21 09/23/23 Blanquita Eubanks, OFFICE AIDE [address] [place] [address] [address] [place] [address] PCP - General CLINICAL NURSE SPECIALIST 09/24/23 documented as of this encounter
--- OUTSIDE RECORDS SUMMARY | 2025-03-31 12:20 | XMS_ITS | Encounter Summary ---
Author Organization [facility] Address [address] [place] [address] Care Team Providers Care Network Control Operator Name Role Phone Blanquita Eubanks BELT CHANGER Primary Care Provider [phone] Encounter Details Date Type Department Care Team (Late Contact Info) Description 03/26/2024 MyChart Message Enc [facility] - [address], [address] [place] [phone] Kenyatta Sow MD [address] [place] [address] Carbamazaphine Social History Tobacco Use Types [...] (Late Contact Info) Description 03/31/2026 7:20 AM DIGITAL DESIGN ENGINEER Office Visit [address], [address] [place] [address] Kenyatta Sow MD 3 [place] [address] documented as of this encounter Visit Diagnoses Not on filedocumented in this encounter Care Teams Network Control Operator Relationship Specialty Start Date End Date Blanquita Eubanks FNP [address] [facility] [address] [place] [address] PCP - General CLINICAL NURSE SPECIALIST 09/24/23 documented as of this encounter
--- OUTSIDE RECORDS SUMMARY | 2025-03-31 12:20 | XMS_ITS | Encounter Summary ---
Author Organization [facility] Address [address] [place] [address] Care Team Providers Care Cash Applications Associate Name Role Phone Blanquita Eubanks Primary Care Provider [phone] Encounter Details Date Type Department Care Team (Latest Contact Info) Description 03/30/2025 Travel Social History Tobacco Use Types Packs/Day Years [...] st Contact Info) Description 03/31/2026 7:20 AM RADIO TIME BUYER Office Visit [facility] Multispecialty Care - [facility] [address] [facility], [address] [place] [phone] Kenyatta Sow MD 3 [place] [address] documented as of this encounter Visit Diagnoses Not on filedocumented in this encounter Care Teams Cash Applications Associate Relationship Specialty Start Date End Date Blanquita Eubanks FNP [address] [place] [address] [address] [place] [address] PCP - General CLINICAL NURSE SPECIALIST 09/24/23 documented as of this encounter
--- OUTSIDE RECORDS SUMMARY | 2025-03-31 12:20 | XMS_ITS | Clinical Summary ---
Author Organization [facility] Address [address] [place] [address] Care Team Providers Care Bulb Brander Name Role Phone ChineduBlanquita farah Clotilde [facility] Primary Care Provider [phone] Allergies No known active allergies Medications losartan (COZAAR) 50 MG tablet Take 1 tablet (50 mg total) by mouth daily. 3 Active Vitamin D3 (VITAMIN D) 50 mcg tablet Take 1 tablet (50 mcg total) by mouth daily. 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 360 capsule 3 4 025 Discontinued Active Problems Problem Noted Date Diagnosed Date Murmur Encounters Date Type Department Care Team Description 03/30/2025 7:20 AM UPPER CUTTER OUT Office Visit [facility] Multispecialty Care - [address], [address] [place] [address] Kenyatta Sow MD Follow Up (Does have a couple of concerns) 03/30/2025 Travel from Last 3 Months Immunizations Immunization Administration [...] Comments Blood Pressure 123/74 03/30/2025 7:20 AM UPPER CUTTER OUT Pulse 81 03/30/2025 7:20 AM UPPER CUTTER OUT Temperature 36.5 C (97.7 F) 03/30/2023 8:57 AM UPPER CUTTER OUT Respiratory Rate 16 03/30/2023 8:57 AM UPPER CUTTER OUT Oxygen Saturation 100% 03/30/2025 7:20 AM UPPER CUTTER OUT Inhaled Oxygen Concentration - - Weight 74.8 kg (165 lb) 03/30/2025 7:20 AM UPPER CUTTER OUT Height 168.9 cm (5' 6.5) 03/30/2025 7:20 AM UPPER CUTTER OUT Body Mass Index 26.23 03/30/2025 7:20 AM UPPER CUTTER OUT Plan of Treatment Upcoming Encounters Date Type Department Care Team (Late st Contact Info) Description 03/31/2026 7:20 AM UPPER CUTTER OUT Office Visit [facility] Multispecialty Care - [facility] 3 [facility], [address] [place] [phone] Kenyatta Sow MD 3 [place] [address] Health Maintenance Due Date Last Done Comments Colorectal Cancer Screening Colonoscopy (10 Years) 1975 Annual Physical 12/22/1978 Hepatitis C 12/22/1993 DTaP, Tdap and Td Vaccines ( 1 - Tdap) 12/22/1994 Hepatitis B Vaccines (1 of 3 - 19+ 3-dose series) 12/22/1994 Cervical Cancer Screening Pa p with HPV Testing (Age 30 to 64) Every 5 Years 12/22/2005 Mammogram Screening 2015 PHQ-2 (Physician [place]) 04/16/2024 COVID-19 Vaccine (4 - 2024-2 6 season) 2024 04/21/2021, 11/18/2020, 10/28/2020 Influenza Adult (#1) 2025 03/27/2016 Cervical Cancer Screening Pa p Smear (Age 30 to 64) Every 3 Years 08/22/2026 08/23/2023 Cervical Cancer Screening wi th HPV 08/22/2026 Hepatitis A Vaccines Aged Out No long er eligible based on patient's age to complete this topic Meningococcal B Vaccine Aged Out No l [...] patient's age to complete this topic Insurance [id number] Care Teams Bulb Brander Relationship Specialty Start Date End Date Blanquita Eubanks FNP [address] [place] [address] [address] [place] [address] PCP - General CLINICAL NURSE SPECIALIST 09/24/23
== END 2025-03-31 10:22 | disposition home or self-care (01) ==
LOC: ANHIMG 10:28
PROVIDERS: PCP Internal Medicine; Visit Provider Psychiatry & Neurology Neurology
DX: R56.9 Unspecified convulsions (principal)
CPT/HCPCS: 70553; A9577

== ENCOUNTER 2025-04-01 09:11 | Outpatient (CLI) | payer OTHER, SELFPAY ==
[2025-04-01 09:58] LABS: Alanine Aminotransferase 19 U/L (6-35); Albumin Level 4.6 g/dL (3.5-5.1); Alkaline Phosphatase 43 U/L (38-126); Anion Gap 10 mmol/L (4-12); Aspartate Amino Transferase 31 U/L (14-36); Bilirubin,Total 0.4 mg/dL (0.2-1.3); Blood Urea Nitrogen 16 mg/dL (7-17); Calcium 8.9 mg/dL (8.4-10.2); Carbon Dioxide 22 mmol/L (22-30); Chloride 101 mmol/L (98-107); Estimated Glomerular Filt Rate > 60; Glucose 92 mg/dL (65-110); Potassium 4.2 mmol/L (3.4-5.0); Sodium 133 mmol/L (137-145); Total Protein 7.9 g/dL (6.3-8.2)
[2025-04-02 07:09] LABS: Carbamazepine (Tegretol) 9.5 ug/mL (4.0-12.0)
== END 2025-04-01 09:12 | disposition home or self-care (01) ==
LOC: ANHLAB 09:13
PROVIDERS: PCP Internal Medicine; Visit Provider Psychiatry & Neurology Neurology
DX: R56.9 Unspecified convulsions (principal)
CPT/HCPCS: 36415; 80053; 80156